=== PATIENT | female | born 1950 | race Caucasian/White ===

== ENCOUNTER → 2019-10-05 09:30 | Outpatient (BNVA) | payer MEDICARE, MEDICAID, SELFPAY | PROVIDERS: Family Provider Nurse Practitioner Family; PCP Nurse Practitioner Family; Visit Provider Nurse Practitioner | DX: G89.29 Other chronic pain (principal); M51.17 Intervertebral disc disorders with radiculopathy, lumbosacral region; M53.3 Sacrococcygeal disorders, not elsewhere classified; M54.2 Cervicalgia; M17.0 Bilateral primary osteoarthritis of knee; M06.9 Rheumatoid arthritis, unspecified; M25.511 Pain in right shoulder; M79.7 Fibromyalgia; Z79.891 Long term (current) use of opiate analgesic | CPT/HCPCS: 99214 ==

== ENCOUNTER → 2019-10-26 07:40 | Outpatient (BNVA) | payer MEDICARE, MEDICAID, SELFPAY | PROVIDERS: Family Provider Nurse Practitioner Family; PCP Nurse Practitioner Family; Visit Provider Obstetrics & Gynecology | DX: D07.1 Carcinoma in situ of vulva (principal) | CPT/HCPCS: 88305 ==

== ENCOUNTER 2019-11-02 10:46 | Outpatient (CLI) | payer MEDICARE, MEDICAID, SELFPAY ==
[2019-11-02 11:00] VITALS: BP 139/69; PULSE 51; RESP 16; TEMP 36.8; O2SAT 98
== END 2019-11-02 10:47 | disposition home or self-care (01) ==
LOC: RHEOACUTE 10:48
PROVIDERS: Family Provider Nurse Practitioner Family; PCP Nurse Practitioner Family; Visit Provider Internal Medicine Rheumatology
DX: M05.79 Rheumatoid arthritis with rheumatoid factor of multiple sites without organ or systems involvement (principal); Z79.899 Other long term (current) drug therapy; E78.5 Hyperlipidemia, unspecified; I10 Essential (primary) hypertension; D07.1 Carcinoma in situ of vulva
CPT/HCPCS: 36415; 82565; 84460; 85025; 86140; 96365; J1602

== ENCOUNTER → 2019-11-02 11:26 | Outpatient (BNVA) | payer MEDICARE, MEDICAID, SELFPAY | PROVIDERS: Family Provider Nurse Practitioner Family; PCP Nurse Practitioner Family | DX: M05.79 Rheumatoid arthritis with rheumatoid factor of multiple sites without organ or systems involvement (principal); E78.5 Hyperlipidemia, unspecified; I10 Essential (primary) hypertension; D07.1 Carcinoma in situ of vulva; Z79.899 Other long term (current) drug therapy | CPT/HCPCS: 85025 ==

== ENCOUNTER → 2019-11-22 13:43 | Outpatient (BNVA) | payer MEDICARE, MEDICAID, SELFPAY | PROVIDERS: Family Provider Nurse Practitioner Family; PCP Nurse Practitioner Family; Visit Provider Specialist | DX: M25.562 Pain in left knee (principal); G89.29 Other chronic pain; S82.292A Other fracture of shaft of left tibia, initial encounter for closed fracture; X58.XXXA Exposure to other specified factors, initial encounter | CPT/HCPCS: 73560; 73565 ==

== ENCOUNTER → 2019-11-30 09:33 | Outpatient (BNVA) | payer MEDICARE, MEDICAID, SELFPAY | PROVIDERS: Family Provider Nurse Practitioner Family; PCP Nurse Practitioner Family; Visit Provider Anesthesiology | DX: G89.29 Other chronic pain (principal); M51.17 Intervertebral disc disorders with radiculopathy, lumbosacral region; M53.3 Sacrococcygeal disorders, not elsewhere classified; M54.2 Cervicalgia; Z79.891 Long term (current) use of opiate analgesic | CPT/HCPCS: 99214 ==

== ENCOUNTER → 2019-12-27 15:53 | Outpatient (BNVA) | payer MEDICARE, MEDICAID, SELFPAY | PROVIDERS: Family Provider Nurse Practitioner Family; PCP Nurse Practitioner Family; Visit Provider Nurse Practitioner Family | DX: N39.0 Urinary tract infection, site not specified (principal); R11.0 Nausea | CPT/HCPCS: 80053; 81000; 87077; 87086; 87186 ==

== ENCOUNTER 2019-12-28 14:15 | Inpatient (IN) | payer MEDICARE, MEDICAID, SELFPAY ==
[2019-12-28 14:16] VITALS: BP 134/107; PULSE 109; RESP 20; TEMP 38.5; O2SAT 94; BMI 32.3
--- NOTE | 2019-12-28 14:27 | ED_ITS ---
HPI - General Adult General: Chief complaint: General Medical Stated complaint: N/V, FEVER, CP Time Seen by Provider: 12/28/19 14:26 History of Present Illness: HPI narrative: Pt tells me she is here for a uti. She has had burning with urination, frequency, fever, vomiting. She told triage that she had a fever chest pain and was coughing which they witnessed. She told someone that she had been started on abx yesterday for uti but she got worse today. bcak pain. Onset (ago): day(s) (3) Location: abdomen (suprapubic) Radiation: back Severity: severe Severity scale (1-10): 6 Quality: burning and stabbing Pain Consistency: constant Relieving factors: none Exacerbating factors: none Associated symptoms: Reports chest pain, cough, fevers/chills, malaise, nausea and vomiting; Deny dyspnea, headache(s) or rash Review of Systems General: Reports: 10 or more systems reviewed and unremarkable except in HPI and below Const: Reports: fever, chills, body aches, change in appetite, fatigue and malaise ENMT: Denies: throat pain Card: Reports: chest pain Resp: Denies: shortness of breath or productive cough GI: Reports: abdominal pain, nausea and vomiting; Denies: diarrhea : Reports: flank pain, difficulty urinating, painful urination, urinary frequency, urinary urgency and urinary hesitancy Musc: Reports: back pain and joint pain; Denies: extremity swelling Skin/Breast: Denies: rash Neuro: Denies: headache, numbness in extremities or weakness in extremities PFSH ED PFSH: Medical History Bilateral primary osteoarthritis of knee CAD (coronary artery disease), [place] coronary artery Chronic right shoulder pain Dyslipidemia Encounter for long-term opiate analgesic use Fibromyalgia High risk medication use Hypertension Immunization counseling Lichen sclerosus (~2013) Localized osteoarthritis of right knee Long-term use of high-risk medication Neck pain PVC (premature ventricular contraction) Rheumatoid arthritis, unspecified Risk for falls Sciatic radiculitis Seropositive rheumatoid arthritis SI (sacroiliac) joint dysfunction Vulvar intraepithelial neoplasia III Surgical History H/O local excision of skin lesion (03/09/19) Dx: Vulvar lesions. Performed by Dr. Erazo at [facility] [place]. 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 Hadley. S/P hysterectomy (~1975) With BSO S/P knee surgery (~2012) Right knee. Dr. Royal Status post arterial stent (09/05/19) only 1 stent at [facility] [place] Family History Brother Hyperlipidemia Grandmother Breast cancer Maternal Sister Diabetes Family/Other CAD (coronary artery disease) Father's side of the family Social History Smoking and tobacco status: never smoked Second hand smoke exposure: No Alcohol intake: never History of recent travel: No Additional social history: well- balanced Physical Exam Const: COMMON NORMALS: no apparent distress and oriented x3 GENERAL APPEARANCE: cooperative; not in distress HENMT: COMMON NORMALS: normocephalic HEAD & SCALP: normal to inspection and normocephalic MOUTH: oral and palatal mucosa normal and lip normal THROAT: posterior oropharynx normal and tonsils normal Neck/C-Spine: COMMON NORMALS: full ROM, no lymphadenopathy, supple and no meningeal signs GENERAL: Yes normal visual inspection and Yes trachea midline Chest: COMMONS NORMALS: inspection of chest normal Resp: COMMON NORMALS: normal respiratory effort and clear to auscultation bilaterally EFFORT & INSPECTION: Yes able to speak in complete sentences and No respiratory distress AUSCULTATION: clear to auscultation bilaterally, no rales, no rhonchi and no wheezes Cardio: COMMON NORMALS: regular rate, regular rhythm, S1 normal heart sound, S2 normal heart sound and no murmurs RATE: regular rate RHYTHM: regular rhythm HEART SOUNDS: S1 normal and S2 normal PERIPHERAL PULSES: radial pulses present and dorsalis pedis pulses present GI: COMMON NORMALS: normal to inspection, nondistended, normoactive bowel sounds, soft to palpation and non-tender INSPECTION: Yes normal to inspection AUSCULTATION: Yes normoactive bowel sounds PALPATION: Yes soft, No tender, No guarding and No rigid RECTAL EXAM: deferred : COMMON NORMALS: No no CVA tenderness BLADDER/KIDNEY EXAM: No no CVA tenderness and Yes CVA tenderness Back/Pelvis: COMMON NORMALS: negative for no CVA tenderness GENERAL BACK: Yes CVA tenderness CVA tenderness: bilateral Extremity: COMMON NORMALS: normal to inspection, full ROM, normal capillary refill, no calf tenderness and no pedal edema Neuro: COMMON NORMALS: oriented x3, CN's II-XII intact bilaterally, moves all extremities and no focal motor deficits MENINGEAL SIGNS: Yes no meningeal signs Skin: COMMON NORMALS: no rashes or lesions noted GENERAL SKIN EXAM: no rashes or lesions noted Course Vital Signs: Vital signs: Vital Signs Temperature 101.3 F H 12/28/19 14:16 Pulse Rate 92 12/28/19 15:51 Respiratory Rate 25 H 12/28/19 15:51 Blood Pressure 137/59 12/28/19 15:51 Pulse Oximetry 92 12/28/19 15:51 MDM - General Adult MDM Narrative: Medical decision making narrative: Pt has acute sepsis with acute pytelnephritis and acute kidney injury due to her intractable vomiting, she is a cad pt and cannot hold down her meds, she is febrile and has a wbc of 16 and will require iv abx as she has been on oral abx and is failing outpt therapy. She has had cough and states she has been exposed to covid + pts. Dr Mcpherson states he will admit the pt Lab Data: Attestation: I reviewed the patient's lab results. Labs: Lab Results 12/28/19 12/28/19 12/28/19 Range/Units 13:15 13:15 13:15 WBC 16.8 H (4.0-10.0) 10^3/ uL RBC 4.34 (4.1-5.3) 10^6/u L Hgb 12.1 (11.5-15.3) g/dL Hct 38.2 (37.0-47.0) % MCV 88.0 (81-99) fL MCH 27.9 L (28.0-34.0) pg MCHC 31.7 (30.0-36.0) g/dL RDW 12.9 (12.1-15.1) % Plt Count 280 (130-400) 10^3/c mm MPV 11.4 H (7.4-10.4) fL Neut % (Auto) 80.4 % Lymph % (Auto) 8.9 % Cowley % (Auto) 10.0 % Eos % (Auto) 0.0 % Baso % (Auto) 0.2 % Neut # (Auto) 13.5 H (1.8-7.7) 10^3/u L Lymph # (Auto) 1.5 (0.8-4.8) 10^3/u L [place]ley # (Auto) 1.7 H (0.2-0.9) 10^3/u L Eos # (Auto) 0.0 (0.0-0.8) 10^3/u L Baso # (Auto) 0.0 (0.0-0.1) 10^3/u L Nucleated RBC % (a uto) 0 % Nucleated RBCs # 0.0 /100WBC Sodium 142 (136-145) mmol/L Potassium 3.9 (3.5-5.1) mmol/L Chloride 103 (98-107) mmol/L Carbon Dioxide 21 L (22-29) mmol/L Anion Gap 21.9 H (5-19) BUN 30 H (8-23) mg/dL Creatinine 1.7 H (0.5-0.9) mg/dL GFR Calculation 29.9 L (90-130) mL/min Glucose 139 H (65-115) mg/dL Calculated Osmolal ity 293 (285-295) mOsm/k g Calcium 9.6 (8.5-10.5) mg/dL Total Bilirubin 0.8 (0.15-1.2) mg/dL AST 25 (0-32) U/L ALT 13 (0-33) U/L Alkaline Phosphata se 88 (35-105) IU/L Troponin T Baselin e 16 H (0-10) ng/mL Troponin T 120 Min [place] (0-10) ng/mL Delta Troponin T (0-10) ABS# Total Protein 8.5 (6.6-8.7) g/dL Albumin 4.3 (3.5-5.2) g/dL Globulin 4.2 (1.3-4.6) g/dL Lipase 9 L (13-60) U/L Urine Color (Yellow) Urine Appearance (CLEAR) Urine pH (5-7) Ur Specific Gravit y (1.005-1.030) Urine Protein (Negative) Urine Glucose (UA) (Normal) Urine Ketones (Negative) Urine Blood (Negative) Urine Nitrate (Negative) Urine Bilirubin (NEGATIVE) Urine Urobilinogen (Negative) mg/dL Ur Leukocyte [place] (Negative) Urine RBC (0-2) /hpf Urine WBC (0-5) /hpf Ur Squamous Epith Cells (0-5) Ur Transition Epit h Cell /hpf Urine Bacteria (NONE) Urine Mucus Ur Oval Fat Bodies Influenza Type A A g (Negative) Influenza Type B A g (Negative) 12/28/19 12/28/19 12/28/19 Range/Units 15:17 15:20 15:26 WBC (4.0-10.0) 10^3/ uL RBC (4.1-5.3) 10^6/u L Hgb (11.5-15.3) g/dL Hct (37.0-47.0) % MCV (81-99) fL MCH (28.0-34.0) pg MCHC (30.0-36.0) g/dL RDW (12.1-15.1) % Plt Count (130-400) 10^3/c mm MPV (7.4-10.4) fL Neut % (Auto) % Lymph % (Auto) % [place] % (Auto) % Eos % (Auto) % Baso % (Auto) % Neut # (Auto) (1.8-7.7) 10^3/u L Lymph # (Auto) (0.8-4.8) 10^3/u L [place] # (Auto) (0.2-0.9) 10^3/u L Eos # (Auto) (0.0-0.8) 10^3/u L Baso # (Auto) (0.0-0.1) 10^3/u L Nucleated RBC % (a uto) % Nucleated RBCs # /100WBC Sodium (136-145) mmol/L Potassium (3.5-5.1) mmol/L Chloride (98-107) mmol/L Carbon Dioxide (22-29) mmol/L Anion Gap (5-19) BUN (8-23) mg/dL Creatinine (0.5-0.9) mg/dL GFR Calculation (90-130) mL/min Glucose (65-115) mg/dL Calculated Osmolal ity (285-295) mOsm/k g Calcium (8.5-10.5) mg/dL Total Bilirubin (0.15-1.2) mg/dL AST (0-32) U/L ALT (0-33) U/L Alkaline Phosphata se (35-105) IU/L Troponin T Baselin e (0-10) ng/mL Troponin T 120 Min [place] 19.44 H (0-10) ng/mL Delta Troponin T 3.44 (0-10) ABS# Total Protein (6.6-8.7) g/dL Albumin (3.5-5.2) g/dL Globulin (1.3-4.6) g/dL Lipase (13-60) U/L Urine Color Emma (Yellow) Urine Appearance Sl cloudy A (CLEAR) Urine pH 5 (5-7) Ur Specific Gravit y 1.020 (1.005-1.030) Urine Protein 3+ H (Negative) Urine Glucose (UA) Norm (Normal) Urine Ketones 1+ H (Negative) Urine Blood 3+ H (Negative) Urine Nitrate Positive H (Negative) Urine Bilirubin 1+ H (NEGATIVE) Urine Urobilinogen 1 H (Negative) mg/dL Ur Leukocyte [place] 2+ H (Negative) Urine RBC 15-25 H (0-2) /hpf Urine WBC 25-40 H (0-5) /hpf Ur Squamous Epith Cells 5-10 H (0-5) Ur Transition Epit h Cell Rare /hpf Urine Bacteria 3+ H (NONE) Urine Mucus 1+ Ur Oval Fat Bodies 1+ Influenza Type A A g Negative (Negative) Influenza Type B A g Negative (Negative) Discharge Plan Discharge Prescriptions: No Action lidocaine-epinephrine 2 %-1:100,000 solution 1 ml SUBCUT ONCE Qty: 1 RF: 0 metoprolol tartrate 25 mg tablet 25 mg PO BID RF: 0 pantoprazole 40 mg tablet,delayed release (DR/EC) 40 mg PO ONCE RF: 0 clopidogrel [Plavix] 75 mg tablet 75 mg PO ONCE RF: 0 aspirin 81 mg tablet,delayed release (DR/EC) 81 mg PO ONCE RF: 0 nitroglycerin 0.4 mg tablet, sublingual 0.4 mg SUBLINGUAL .once up to 3 pills RF: 0 cyanocobalamin (vitamin B-12) [Vitamin B-12] 500 mcg tablet 500 mcg PO ONCE RF: 0 hydrocodone-acetaminophen 10-325 mg tablet 1 tab PO .five times daily PRN (Reason: pain) 30 Days Qty: 150 RF: 0 hydrocodone-acetaminophen 10-325 mg tablet 1 tab PO .5 times daily PRN (Reason: pain) 30 Days Qty: 150 RF: 0 tizanidine 4 mg tablet 4 mg PO .at bedtime PRN (Reason: muscle spasticity) 30 Days Qty: 30 RF: 0 pregabalin [Lyrica] 50 mg capsule 50 mg PO TID 30 Days Qty: 90 RF: 1 nitrofurantoin monohyd/m-cryst [Macrobid] 100 mg capsule 100 mg PO Q12H 7 Days Qty: 14 RF: 0 phenazopyridine [Pyridium] 200 mg tablet 200 mg PO TID Qty: 6 RF: 0 ondansetron HCl [Zofran] 4 mg tablet 4 mg PO Q8H PRN (Reason: nausea and vomiting) 3 Days Qty: 10 RF: 0 atorvastatin 40 mg tablet 40 mg PO ONCE Qty: 90 RF: 3 spironolactone 25 mg tablet 12.5 mg PO DAILY Qty: 45 RF: 3 Coding Level of Care Code ED General Medical Practitioner for Chg Fwd Exam Comprehensive
--- NOTE | 2019-12-28 14:55 | ECG_ITS ---
Measurements Intervals [place] Rate: 107 P: -82 TN: 90 QRS: -57 QRSD: 116 T: 65 QT: 331 QTc: 443 JUNCTIONAL TACHYCARDIA PATTERN CONSISTENT WITH PULMONARY DISEASE INCOMPLETE RIGHT BUNDLE BRANCH BLOCK [90+ ms QRS DURATION, TERMINAL R IN V1/V2, 440+ ms S IN I/aVL/V4/V5/V6] LEFT ANTERIOR FASCICULAR BLOCK [QRS AXIS <= -45, QR IN I, RS IN II] LEFT VENTRICULAR HYPERTROPHY AND ST-T CHANGE [VOLTAGE CRITERIA PLUS ST/T ABN ABNORMALITY] POSSIBLE SEPTAL MYOCARDIAL INFARCTION , PROBABLY OLD [30 ms Q WAVE IN V1/V2] Compared to ECG 03/05/2019 11:02:08Junctional tachycardia now present Incomplete right bundle-branch block now presentLeft anterior fascicular block now presentST (T wave) deviation now present Myocardial infarct finding now present Sinus bradycardia no longer present Left-axis deviation no longer present Electronically Signed On 12-29-2019 18:00:06 CDT by Annamaria Brandon M.D. [email or web address] ion
[2019-12-28 15:13] LABS: Basophils % 0.2 %; Hematocrit 38.2 % (37.0-47.0); Hemoglobin 12.1 g/dL (11.5-15.3); Lymphocytes # 1.5 10^3/uL (0.8-4.8); Lymphocytes % 8.9 %; Mean Corpuscular HGB Conc 31.7 g/dL (30.0-36.0); Mean Corpuscular Hemoglobin 27.9 pg (28.0-34.0); Mean Platelet Volume 11.4 fL (7.4-10.4); Monocytes # 1.7 10^3/uL (0.2-0.9); Neutrophils # 13.5 10^3/uL (1.8-7.7); Neutrophils % 80.4 %; Nucleated Red Blood Cells % 0 %; Platelet Count 280 10^3/cmm (130-400); Red Blood Count 4.34 10^6/uL (4.1-5.3); Red Cell Distribution Width 12.9 % (12.1-15.1); White Blood Count 16.8 10^3/uL (4.0-10.0)
[2019-12-28] MEDS: ondansetron 2 mg/ML SDV 2 mL 4 MG IVP ×2 (15:30→20:28)
[2019-12-28] MEDS: sodium chloride 0.9% 500 ML IV (15:30)
[2019-12-28 15:45] LABS: Alanine Aminotransferase 13 U/L (0-33); Albumin Level 4.3 g/dL (3.5-5.2); Alkaline Phosphatase 88 IU/L (35-105); Anion Gap 21.9 (5-19); Aspartate Amino Transferase 25 U/L (0-32); Blood Urea Nitrogen 30 mg/dL (8-23); Calcium 9.6 mg/dL (8.5-10.5); Carbon Dioxide 21 mmol/L (22-29); Chloride 103 mmol/L (98-107); Globulin 4.2 g/dL (1.3-4.6); Glomerular Filtration Rate 29.9 mL/min (90-130); Glucose 139 mg/dL (65-115); Lipase 9 U/L (13-60); Osmolality Calculated 293 mOsm/kg (285-295); Potassium 3.9 mmol/L (3.5-5.1); Sodium 142 mmol/L (136-145); Total Bilirubin 0.8 mg/dL (0.15-1.2); Total Protein 8.5 g/dL (6.6-8.7)
[2019-12-28 15:46] LABS: Troponin(5th) Baseline 16 ng/mL (0-10)
[2019-12-28 15:51] VITALS: BP 137/59; PULSE 92; RESP 25; O2SAT 92
--- NOTE | 2019-12-28 16:13 | XR_ITS ---
WS: [id number] CHEST XRAY TECHNIQUE: Portable chest. CLINICAL INFORMATION: pneumonia COMPARISON: July 23, 2019 FINDINGS: Heart: Normal cardiac silhouette. Lungs: Chronic emphysematous changes. No acute pulmonary infiltrates. No focal pneumonia. Bones: Normal visualized bony structures. XR/XR chest 1V portable [id number] IMPRESSION: No acute chest findings
[2019-12-28 16:28] LABS: Urine Color Amber (Yellow)
[2019-12-28 16:29] LABS: Add Urine Microscopic? YES; Bilirubin Urine 1+ (NEGATIVE); Blood Urine 3+ (Negative); Glucose Urine UA Norm (Normal); Ketones Urine 1+ (Negative); Leukocyte Esterase Urine 2+ (Negative); Nitrate Urine Positive (Negative); Protein Urine 3+ (Negative); Urobilinogen Urine 1 mg/dL (Negative); pH Urine 5 (5-7)
[2019-12-28 16:34] LABS: Influenza A by IFA Negative (Negative); Influenza B by IFA Negative (Negative)
[2019-12-28 16:36] LABS: RBC Urine 15-25 /hpf (0-2)
[2019-12-28 16:37] LABS: Add Urine Culture? Yes; Bacteria Urine 3+; Mucus Urine 1+; Oval Fat Bodies Urine 1+; Transitional Epi Cells Urine RARE /hpf; WBC Urine 25-40 /hpf (0-5)
--- NOTE | 2019-12-28 16:55 | ECG_ITS ---
Measurements Intervals [place] Rate: 99 P: -8 NV: 129 QRS: -56 QRSD: 119 T: 63 QT: 351 QTc: 452 SINUS RHYTHM INCOMPLETE RIGHT BUNDLE BRANCH BLOCK [90+ ms QRS DURATION, TERMINAL R IN V1/V2, 40+ ms S IN I/aVL/V4/V5/V6] LEFT ANTERIOR FASCICULAR BLOCK [QRS AXIS <= -45, QR IN I, RS IN II] LEFT VENTRICULAR HYPERTROPHY AND ST-T CHANGE [VOLTAGE CRITERIA PLUS ST/T ABN ABNORMALITY] POSSIBLE SEPTAL MYOCARDIAL INFARCTION , OF INDETERMINATE AGE [30 ms Q WAVE IN V1 V1/V2]Compared to ECG 03/05/2019 11:02:08.Left anterior fascicular block now present ST (T wave) deviation now present.Myocardial infarct finding now present Sinus bradycardia no longer present.Intraventricular conduction delay no longer present.T-wave abnormality no longer present Possible ischemia no longer present Electronically Signed On 12-29-2019 18:08:50 CDT by Annamaria Brandon M.D. [id number]
[2019-12-28 16:59] LABS: Troponin 5 2HR 19.44 ng/mL (0-10); Troponin 5 2HR Delta 3.44 ABS# (0-10)
[2019-12-28] MEDS: piperacillin-tazobactam 3.375 GM in sodium chloride 0.9% (plus) 50 ML IV (17:46)
[2019-12-28] MEDS: vancomycin 1,000 MG in sodium chloride 0.9% 250 ML 250 MG IV (18:20)
[2019-12-28 18:25] VITALS: BP 139/68; PULSE 92; RESP 18; TEMP 36.7; O2SAT 97
--- NOTE | 2019-12-28 19:23 | PM.HP ---
Providers/Chief Complaint Admitting Physician: Malachi Mcpherson Primary Care Provider: Lien Rangel NP Chief Complaint: N/V, FEVER, CP History of Present Illness Gracy Montemayor is a 69 year old female who has history of seropositive rheumatoid arthritis diagnosed in 1994(did not tolerate methotrexate and Remicade due to hair loss currently on Simponi since 2018), back pain due to sciatica, complicated hospitalization in December 2018 at [facility] when she developed V. tach, cardiac arrest, C. difficile, pyelonephritis, currently seeing Dr. Goldberg who has put her on metoprolol for multiple PVCs and SVT, as per Holter monitoring reading, LAD 75 to 80% stenosis status post stent 08/10, EF 65%, presented today with chief complaint of dysuria. Patient is stating that her symptoms started 2 days ago when she started having burning on micturition, frequency, hesitancy, she also noticed blood in her urine. Her PCP started her on nitrofurantoin, today's her day 10/29, she spiked fever 101 at home, she did not notice any chest pain, shortness of breath, or vomiting. She experienced dry heaves, nausea and chronic back pain, she is stating that her back pain is chronic she has not noticed a change in the intensity of the pain however on voiding she notices burning and pain around her groin area. She has not traveled outside [place], no one has visited her as well. She is not complaining of any respiratory distress or productive cough. Diagnostics in ER revealed sepsis, febrile, leukocytosis, she was given vancomycin, Zosyn,covid testing ordered, she got appropriate septic bolus, When I examined her she was asymptomatic however febrile, able to give me all the details, complaining of burning on micturition, no diarrhea or vomiting. Review of Systems Const: Reports: fever, chills, body aches and fatigue Eyes: Reports: dry eyes; Denies: change in vision ENMT: Denies: throat pain Card: Denies: chest pain Resp: Denies: shortness of breath or non-productive cough GI: Reports: abdominal pain and nausea; Denies: vomiting or diarrhea : Reports: flank pain, difficulty urinating, painful urination, urinary frequency and urinary urgency Musc: Reports: joint pain and limited range of motion Skin/Breast: Denies: rash Neuro: Denies: headache Psych: Denies: anxiety Endo: Denies: excessive urination Fausto/Lymph: Denies: easy bruising All/Imm: Denies: hives Medications/Allergies Home Medications Medication Instructions Recorded Confirmed Last Taken Type atorvastatin 40 mg PO DAILY 12/28/19 12/28/19 12/27/19 History lifitegrast [Xiidra] See Rx Instructions .ROUTE .COMPLEX 12/28/19 12/28/19 12/27/19 History Allergies Allergy/AdvReac Type Severity Reaction Status Date / Time adhesive tape Allergy RASH Verified 12/27/19 15:48 sulfacetamide Allergy RASH Verified 12/27/19 15:48 gabapentin AdvReac DIZZY Verified 12/27/19 15:48 PFSH Acute PFSH: Medical History (Updated 12/28/19 @ 20:24 by Nadia Ortega MD) Bilateral primary osteoarthritis of knee Bowel perforation CAD (coronary artery disease), [place] coronary artery Chronic constipation Chronic right shoulder pain Dyslipidemia Encounter for long-term opiate analgesic use Fibromyalgia High risk medication use Hypertension Immunization counseling Lichen sclerosus (~2013) Localized osteoarthritis of right knee Long-term use of high-risk medication Neck pain PVC (premature ventricular contraction) Rheumatoid arthritis, unspecified Risk for falls Sciatic radiculitis Seropositive rheumatoid arthritis SI (sacroiliac) joint dysfunction Vulvar intraepithelial neoplasia III Surgical History (Updated 12/28/19 @ 19:27 by Nadia Ortega MD) H/O local excision of skin lesion (03/09/19) Dx: Vulvar lesions. Performed by Dr. Erazo at [facility] [place]. 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 Hadley. S/P hysterectomy (~1975) With BSO S/P knee surgery (~2012) Right knee. Dr. Royal Status post arterial stent (09/05/19) only 1 stent at [facility] [place] Family History Brother Hyperlipidemia Grandmother Breast cancer Maternal Sister Diabetes Family/Other CAD (coronary artery disease) Father's side of the family Social History Smoking and tobacco status: never smoked Second hand smoke exposure: No Alcohol intake: never History of recent travel: No Additional social history: well- balanced Vitals/I&O/Wt Last Vital Signs Temp 98.1 F 12/28/19 18:25 Pulse 92 12/28/19 18:25 Resp 18 12/28/19 18:25 BP 139/68 12/28/19 18:25 Pulse Ox 97 12/28/19 18:25 12/28/19 12/28/19 12/28/19 06:59 14:59 22:59 Intake Total 550 / 550 Balance 550 / 550 Weight last 48 hrs Weight 90.718 kg Physical Exam Narrative: EXAM NARRATIVE: This is a pleasant elderly female Currently saturating well on room air, Febrile Septic No active respiratory distress S1, S2, sinus tachycardia heart rate above 90, sinus rhythm Abdomen soft, mild tenderness on deep palpation on hypogastric region, CVA tenderness positive bilaterally, back pain radiating towards her knees Lungs are clear to auscultation Neurologically nonfocal exam EOMI, PERRLA, dry eyes Patient seems dehydrated, Appropriate mood and Data : 12/28/19 13:15 12/28/19 13:15 Micro: Microbiology 12/28/19 15:30 Blood Culture - Preliminary Blood SPECIMEN COLLECTED 12/28/19 15:20 Blood Culture - Preliminary Blood SPECIMEN COLLECTED A&P Assessment and plan (1) Sepsis: Status: Acute (2) UTI (urinary tract infection): Status: Acute (3) Seropositive rheumatoid arthritis: Status: Acute (4) Sciatic radiculitis: Status: Chronic (5) PVC (premature ventricular contraction): Status: Acute Additional A&P Information Sepsis secondary to UTI Concern for pyelonephritis with CVA tenderness Continue Zosyn, IV fluid resuscitation for 10 hours Blood and urine culture sent, I have ordered CT abdomen for tomorrow once covid results come back covid testing ordered by ER physician however no risk factors without active clinical signs She has previous history of C. difficile when she was treated for pyelonephritis, no active diarrhea Back pain due to sciatica I will reduce her gabapentin dose because of STEVE She has history of sacroiliitis Seropositive rheumatoid arthritis currently on Simponi every 8 weeks It was started in December 2017 after she failed Remicade and methotrexate due to hair fall No active joint swelling or inflammation noted PVCs, history of V. tach and cardiac arrest in the past Dr. Goldberg has started her on metoprolol, Holter monitoring has revealed PVCs, nonsustained V. tach and PACs Currently EKG showing bifascicular block heart rate about 90 but not above 100 Hemodynamically stable Acute kidney injury most likely secondary to UTI versus pyelonephritis Continue fluids and antibiotics at this point DVT prophylaxis: Heparin Full code Cardiac diet Attestations Medical Necessity Statement*: Anticipating stay in the hospital cross more than 2 midnights because of sepsis secondary to possible pyelonephritis,covid test ordered Time Spent in Patient Care: 40 Coding Level of Care Code Acute Vice President Network Development for g Fwd Diagnoses Sepsis A41.9 UTI (urinary tract infection) N39.0 Seropositive rheumatoid arthritis M05.9 Sciatic radiculitis M51.17 PVC (premature ventricular contraction) I49.3
[2019-12-28 19:42] VITALS: BP 162/74; PULSE 88; RESP 18; TEMP 38.1; O2SAT 99
[2019-12-28 19:57] LABS: Troponin 5 6HR 18.29 ng/mL (0-10); Troponin 5 6HR Delta 2.29 ng/L (0-12)
[2019-12-28] MEDS: tizanidine 4 mg Tablet PO (20:00)
[2019-12-28] MEDS: phenazopyridine 100 mg Tablet 200 MG PO (20:31)
[2019-12-28] MEDS: heparin 5,000 unit/mL INJ 1 mL 5000 UNIT SUBCUT (20:31)
[2019-12-28] MEDS: pregabalin 25 mg Capsule PO (20:32)
--- NOTE | 2019-12-28 20:55 | ECG_ITS ---
Measurements Intervals [place] Rate: 73 P: -81 TN: 100 QRS: -55 QRSD: 113 T: -26 QT: 377 QTc: 417 JUNCTIONAL RHYTHM LEFT ANTERIOR FASCICULAR BLOCK [QRS AXIS <= -45, QR IN I, RS IN II] MODERATE VOLTAGE CRITERIA FOR LVH, CONSIDER NORMAL VARIANT [MEETS CRITERIA IN ONE OF: R(aVL), S(V1), R(V5), R(V5/V6)+S(V1)] POSSIBLE SEPTAL MYOCARDIAL INFARCTION [30 ms Q WAVE IN V1/V2], PROBABLY OLD Compared to ECG 03/05/2019 11:02:08,Junctional rhythm now present Left anterior fascicular block now present.Myocardial infarct finding now present.Sinus bradycardia no longer present Left-axis deviation no longer present.Intraventricular conduction delay no longer present.T-wave abnormality no longer present Possible ischemia no longer present Electronically Signed On 12-29-2019 18:10:37 CDT by Annamaria Brandon M.D. [email or web address]
[2019-12-29] VITALS (11 sets, daily range): BP systolic 96–147; BP diastolic 57–81; PULSE 57–86; RESP 15–24; TEMP 37.2–38.8; O2SAT 90–97
[2019-12-29] MEDS: piperacillin-tazobactam 3.375 GM in sodium chloride 0.9% (plus) 50 ML IV ×4 (00:26→23:59)
[2019-12-29] MEDS: sodium chloride 0.9% 1,000 ML 50 ML IV ×2 (00:27→16:43)
[2019-12-29] MEDS: acetaminophen 325 mg Tablet 650 MG PO ×3 (01:45→23:59)
[2019-12-29 04:52] LABS: Basophils % 0.1 %; Hematocrit 31.6 % (37.0-47.0); Hemoglobin 9.9 g/dL (11.5-15.3); Lymphocytes # 1.5 10^3/uL (0.8-4.8); Lymphocytes % 10.4 %; Mean Corpuscular HGB Conc 31.3 g/dL (30.0-36.0); Mean Corpuscular Hemoglobin 27.7 pg (28.0-34.0); Mean Corpuscular Volume 88.5 fL (81-99); Mean Platelet Volume 11.3 fL (7.4-10.4); Monocytes # 1.6 10^3/uL (0.2-0.9); Monocytes % 11.1 %; Neutrophils # 10.9 10^3/uL (1.8-7.7); Neutrophils % 77.5 %; Nucleated Red Blood Cells % 0 %; Platelet Count 236 10^3/cmm (130-400); Red Blood Count 3.57 10^6/uL (4.1-5.3); Red Cell Distribution Width 12.9 % (12.1-15.1)
[2019-12-29 04:56] LABS: Anion Gap 19.5 (5-19); Blood Urea Nitrogen 33 mg/dL (8-23); Carbon Dioxide 19 mmol/L (22-29); Chloride 104 mmol/L (98-107); Glomerular Filtration Rate 21.1 mL/min (90-130); Glucose 200 mg/dL (65-115); Osmolality Calculated 291 mOsm/kg (285-295); Potassium 3.5 mmol/L (3.5-5.1); Sodium 139 mmol/L (136-145)
[2019-12-29 04:57] LABS: Lactic Acid level (Lactate) 1.5 mmol/L (0.5-2.2)
[2019-12-29] MEDS: heparin 5,000 unit/mL INJ 1 mL 5000 UNIT SUBCUT ×3 (05:24→19:57)
[2019-12-29] MEDS: HYDROmorphone 1 mg/mL INJ 1 mL IVP ×3 (05:35→21:26)
[2019-12-29] MEDS: phenazopyridine 100 mg Tablet 200 MG PO ×3 (09:20→19:57)
[2019-12-29] MEDS: pregabalin 25 mg Capsule PO (09:20)
[2019-12-29] MEDS: pantoprazole DR 40 mg Tablet PO (09:21)
[2019-12-29] MEDS: atorvastatin 40 mg Tablet PO (09:21)
[2019-12-29] MEDS: aspirin 81 mg EC Tablet PO (09:21)
[2019-12-29] MEDS: clopidogrel 75 mg Tablet PO (09:21)
--- NOTE | 2019-12-29 09:45 | P.PN_ITS ---
Subjective Subjective: Interval history: She is feeling a little bit better today. Occasional intermittent cough. Still clammy, although fevers have resolved. Vitals/I&O/Wt Last Vital Signs Temp 99.7 F H 12/29/19 08:00 Pulse 72 12/29/19 08:00 Resp 17 12/29/19 08:00 BP 122/75 12/29/19 08:00 Pulse Ox 93 12/29/19 08:00 12/28/19 12/29/19 12/29/19 22:59 06:59 14:59 Intake Total 790 / 790 290 / 1080 Balance 790 / 790 290 / 1080 Weight last 48 hrs Weight 90.718 kg Physical Exam Const: COMMON NORMALS: no apparent distress and oriented x3 NUTRITIONAL APPEARANCE: obese OTHER: Clammy skin. HENMT: COMMON NORMALS: oropharynx normal Neck/C-Spine: COMMON NORMALS: no JVD Resp: COMMON NORMALS: normal respiratory effort and clear to auscultation bilaterally AUSCULTATION: clear to auscultation bilaterally Cardio: COMMON NORMALS: no JVD, regular rhythm, S1 normal heart sound, S2 normal heart sound and no murmurs RHYTHM: regular rhythm HEART SOUNDS: S1 normal and S2 normal GI: COMMON NORMALS: normal to inspection, nondistended, normoactive bowel sounds, soft to palpation and non-tender PALPATION: Yes soft Extremity: COMMON NORMALS: no joint enlargement and no pedal edema Neuro: COMMON NORMALS: oriented x3 and moves all extremities Skin: COMMON NORMALS: no rashes or lesions noted GENERAL SKIN EXAM: no rashes or lesions noted Data : 12/29/19 04:10 12/29/19 04:10 Micro: Microbiology 12/28/19 15:17 Urine Culture - Preliminary Urine,Clean Catch 12/28/19 15:30 Blood Culture - Preliminary Blood Gram Negative Rods 12/28/19 15:20 Blood Culture - Preliminary Blood Gram Negative Rods A&P Assessment and plan (1) Sepsis: Improving. Fever, tachycardia improved. Leukocytosis down to 14 today. With fever on presentation, also reporting some occasional cough, and so COVID- 19 testing has been requested. Status: Acute (2) UTI (urinary tract infection): Complicated urinary tract infection with sepsis, possible pyelonephritis. At this time continue Zosyn. Follow-up urine culture. At this time she is improving, however, if there is lack of further improvement or worsening, may need additional imaging. Status: Acute (3) Seropositive rheumatoid arthritis: With sacroiliitis. Reported on Simponi currently every 8 weeks. Status: Acute (4) Sciatic radiculitis: Worsening kidney injury, will decrease Lyrica dose further to 25 mg once a day. These are capsules, so we are unable to break them down further. Status: Chronic (5) PVC (premature ventricular contraction): PVCs, history of V. tach and cardiac arrest in the past Dr. Goldberg has started her on metoprolol, Holter monitoring has revealed PVCs, nonsustained V. tach and PACs Currently EKG showing bifascicular block heart rate about 90 but not above 100 Hemodynamically stable. Maintain cardiac monitoring. Status: Acute (6) Acute kidney injury: Request urine studies. Status: Acute Additional A&P Information Past history of C. difficile with antibiotic treatment. Attestations Medical Necessity Statement*: Continue admission for assessment and management of sepsis, complicated urinary tract infection, acute kidney injury, assessment for COVID-19. Coding Level of Care Code Acute Director Security Risk Management for [facility] Fwd Diagnoses Sepsis A41.9 UTI (urinary tract infection) N39.0 Seropositive rheumatoid arthritis M05.9 Sciatic radiculitis M51.17 PVC (premature ventricular contraction) I49.3 Acute kidney injury N17.9
[2019-12-29 10:48] LABS: Urine Creatinine 168 mg/dL (28-217)
[2019-12-29 11:00] LABS: Urea Nitrogen,Urine Random 556 mg/dL
[2019-12-29] MEDS: tizanidine 4 mg Tablet PO (21:26)
[2019-12-30] VITALS (10 sets, daily range): BP systolic 109–151; BP diastolic 62–77; PULSE 62–80; RESP 12–20; TEMP 36.8–37.7; O2SAT 93–96
--- NOTE | 2019-12-30 02:09 | ECG_ITS ---
Measurements Intervals [place] Rate: 61 P: 8 HI: 150 QRS: -48 QRSD: 124 T: -9 QT: 418 QTc: 424 SINUS RHYTHM POSSIBLE RIGHT VENTRICULAR CONDUCTION DELAY [RSR (QR) IN V1/V2] LEFT ANTERIOR FASCICULAR BLOCK [QRS AXIS <= -45, QR IN I, RS IN II] MODERATE VOLTAGE CRITERIA FOR LVH, CONSIDER NORMAL VARIANT [MEETS CRITERIA IN ONE OF: R(aVL), S(V1), R(V5), R(V5/V6)+S(V1)] POSSIBLE SEPTAL MYOCARDIAL INFARCTION [30 ms Q WAVE IN V1/V2], PROBABLY OLD Compared to ECG 12/28/2019 22:36:32 Junctional rhythm no longer present Myocardial infarct finding still present Electronically Signed On 12-30-2019 15:30:48 CDT by Neftaly Munoz M.D. [email or web address]
[2019-12-30] MEDS: heparin 5,000 unit/mL INJ 1 mL 5000 UNIT SUBCUT ×3 (04:12→20:48)
[2019-12-30 04:55] LABS: Basophils % 0.2 %; Hematocrit 33.5 % (37.0-47.0); Hemoglobin 10.1 g/dL (11.5-15.3); Lymphocytes # 1.8 10^3/uL (0.8-4.8); Mean Corpuscular HGB Conc 30.1 g/dL (30.0-36.0); Mean Corpuscular Hemoglobin 27.4 pg (28.0-34.0); Mean Platelet Volume 11.7 fL (7.4-10.4); Monocytes # 1.6 10^3/uL (0.2-0.9); Monocytes % 12.7 %; Neutrophils # 9.3 10^3/uL (1.8-7.7); Neutrophils % 72.5 %; Nucleated Red Blood Cells % 0 %; Platelet Count 237 10^3/cmm (130-400); Red Blood Count 3.68 10^6/uL (4.1-5.3); Red Cell Distribution Width 12.9 % (12.1-15.1); White Blood Count 12.9 10^3/uL (4.0-10.0)
[2019-12-30 05:11] LABS: Alanine Aminotransferase 18 U/L (0-33); Albumin Level 2.7 g/dL (3.5-5.2); Alkaline Phosphatase 62 IU/L (35-105); Anion Gap 17.6 (5-19); Aspartate Amino Transferase 36 U/L (0-32); Blood Urea Nitrogen 36 mg/dL (8-23); Calcium 8.9 mg/dL (8.5-10.5); Carbon Dioxide 19 mmol/L (22-29); Chloride 107 mmol/L (98-107); Globulin 4.8 g/dL (1.3-4.6); Glomerular Filtration Rate 23.4 mL/min (90-130); Glucose 130 mg/dL (65-115); Osmolality Calculated 289 mOsm/kg (285-295); Potassium 3.6 mmol/L (3.5-5.1); Sodium 140 mmol/L (136-145); Total Bilirubin 0.6 mg/dL (0.15-1.2); Total Protein 7.5 g/dL (6.6-8.7)
[2019-12-30] MEDS: HYDROmorphone 1 mg/mL INJ 1 mL IVP ×4 (05:45→20:47)
[2019-12-30] MEDS: acetaminophen 325 mg Tablet 650 MG PO (05:46)
--- NOTE | 2019-12-30 07:35 | PC.NURSE ---
Radiology notified this nurse that the CT of her Abdomen will be completed after her COVIID-19 test comes back.
[2019-12-30] MEDS: ondansetron 2 mg/ML SDV 2 mL 4 MG IVP ×2 (09:29→20:55)
[2019-12-30] MEDS: clopidogrel 75 mg Tablet PO (09:30)
[2019-12-30] MEDS: atorvastatin 40 mg Tablet PO (09:30)
[2019-12-30] MEDS: phenazopyridine 100 mg Tablet 200 MG PO ×3 (09:30→20:48)
[2019-12-30] MEDS: aspirin 81 mg EC Tablet PO (09:30)
[2019-12-30] MEDS: sodium chloride 0.9% 1,000 ML 50 ML IV (09:30)
[2019-12-30] MEDS: pantoprazole DR 40 mg Tablet PO (09:30)
[2019-12-30] MEDS: piperacillin-tazobactam 3.375 GM in sodium chloride 0.9% (plus) 50 ML IV ×2 (09:32→18:01)
[2019-12-30] MEDS: pregabalin 25 mg Capsule PO (09:41)
--- NOTE | 2019-12-30 13:13 | PM.PN ---
Subjective Subjective: Interval history: Still feeling weak. No new developments. Vitals/I&O/Wt Last Vital Signs Temp 98.9 F 12/30/19 11:16 Pulse 68 12/30/19 11:16 Resp 20 H 12/30/19 11:16 BP 110/62 12/30/19 11:16 Pulse Ox 95 12/30/19 11:16 12/29/19 12/30/19 12/30/19 22:59 06:59 14:59 Intake Total 695.833 / 1393.333 290 / 9775.685 3229.167 / 1679.167 Output Total 450 / 810 Balance 245.833 / 583.333 290 / 131.032 1276.167 / 1679.167 Weight last 48 hrs Weight 90.718 kg Physical Exam Const: COMMON NORMALS: no apparent distress and oriented x3 NUTRITIONAL APPEARANCE: obese OTHER: Appears tired, but not in discomfort. HENMT: COMMON NORMALS: oropharynx normal Neck/C-Spine: COMMON NORMALS: no JVD Resp: COMMON NORMALS: normal respiratory effort and clear to auscultation bilaterally AUSCULTATION: clear to auscultation bilaterally Cardio: COMMON NORMALS: no JVD, regular rhythm, S1 normal heart sound, S2 normal heart sound and no murmurs RHYTHM: regular rhythm HEART SOUNDS: S1 normal and S2 normal GI: COMMON NORMALS: normal to inspection, nondistended, normoactive bowel sounds, soft to palpation and non-tender PALPATION: Yes soft Extremity: COMMON NORMALS: no joint enlargement and no pedal edema Neuro: COMMON NORMALS: oriented x3 and moves all extremities Skin: COMMON NORMALS: no rashes or lesions noted GENERAL SKIN EXAM: no rashes or lesions noted Data : 12/30/19 04:38 12/30/19 04:38 Micro: Microbiology 12/30/19 08:46 Blood Culture - Preliminary Blood SPECIMEN COLLECTED 12/30/19 08:42 Blood Culture - Preliminary Blood SPECIMEN COLLECTED 12/28/19 15:17 Urine Culture - Final Urine,Clean Catch 12/28/19 15:30 Blood Culture - Preliminary Blood Gram Negative Rods 12/28/19 15:20 Blood Culture - Preliminary Blood Gram Negative Rods A&P Assessment and plan (1) Sepsis: Improving. Fever, tachycardia improved. Leukocytosis trending down. Still feeling tired. With 4/4 gram-negative yoana growth and blood culture. Pansensitive E. coli in urine. Immunosuppressed state. Due to extensive growth and blood culture, acute kidney injury will assess renal CT, repeat culture. Continue IV antibiotic at this time. COVID-19 test returned negative. Status: Acute (2) UTI (urinary tract infection): Complicated urinary tract infection with sepsis, suspected pyelonephritis. As above. At this time continue Zosyn. Status: Acute (3) Seropositive rheumatoid arthritis: With sacroiliitis. Reported on Simponi currently every 8 weeks. Status: Acute (4) Sciatic radiculitis: Worsening kidney injury, will decrease Lyrica dose further to 25 mg once a day. These are capsules, so we are unable to break them down further. Status: Chronic (5) PVC (premature ventricular contraction): PVCs, history of V. tach and cardiac arrest in the past Dr. Goldberg has started her on metoprolol, Holter monitoring has revealed PVCs, nonsustained V. tach and PACs Currently EKG showing bifascicular block heart rate about 90 but not above 100 Hemodynamically stable. Maintain cardiac monitoring. Status: Acute (6) Acute kidney injury: Renal function stabilized. Assess renal CT as above. Urine studies suggestive of prerenal disease. Hold spironolactone. Monitor blood pressures. She is in positive balance. For now will avoid additional IV fluid. Status: Acute Additional A&P Information Past history of C. difficile with antibiotic treatment. Attestations Medical Necessity Statement*: Continue for assessment of mesh gated UTI, sepsis, suspected pyelonephritis, acute kidney injury. Coding Level of Care Code Acute Systems Technician for [facility] Fwd Diagnoses Sepsis A41.9 UTI (urinary tract infection) N39.0 Seropositive rheumatoid arthritis M05.9 Sciatic radiculitis M51.17 PVC (premature ventricular contraction) I49.3 Acute kidney injury N17.9
--- NOTE | 2019-12-30 14:59 | PC.SOCIAL ---
Patient received beneficiary letter from medicare for the care pathway model. Original signed and placed in chart. Patient received a copy.
--- NOTE | 2019-12-30 19:26 | PC.NURSE ---
Per the Charge nurse Elo TOBIAS infection control called and said that the COVIID-19 was negative for this patient.
[2019-12-30] MEDS: tizanidine 4 mg Tablet PO (20:48)
[2019-12-31] VITALS (11 sets, daily range): BP systolic 113–166; BP diastolic 66–76; PULSE 56–79; RESP 16–20; TEMP 36.4–37.3; O2SAT 93–96
[2019-12-31] MEDS: piperacillin-tazobactam 3.375 GM in sodium chloride 0.9% (plus) 50 ML IV ×2 (00:42→10:15)
[2019-12-31] MEDS: HYDROmorphone 1 mg/mL INJ 1 mL IVP ×5 (00:49→22:27)
[2019-12-31] MEDS: heparin 5,000 unit/mL INJ 1 mL 5000 UNIT SUBCUT ×3 (04:52→19:54)
[2019-12-31] MEDS: sodium chloride 0.9% 1,000 ML 50 ML IV ×2 (04:54→22:27)
[2019-12-31 05:35] LABS: Basophils % 0.2 %; Eosinophils # 0.1 10^3/uL (0.0-0.8); Eosinophils % 0.6 %; Hematocrit 29.5 % (37.0-47.0); Hemoglobin 9.3 g/dL (11.5-15.3); Lymphocytes # 1.5 10^3/uL (0.8-4.8); Lymphocytes % 14.2 %; Mean Corpuscular HGB Conc 31.5 g/dL (30.0-36.0); Mean Corpuscular Hemoglobin 27.8 pg (28.0-34.0); Mean Corpuscular Volume 88.3 fL (81-99); Monocytes # 1.3 10^3/uL (0.2-0.9); Monocytes % 11.8 %; Neutrophils # 7.8 10^3/uL (1.8-7.7); Neutrophils % 72.4 %; Nucleated Red Blood Cells % 0 %; Platelet Count 277 10^3/cmm (130-400); Red Blood Count 3.34 10^6/uL (4.1-5.3); Red Cell Distribution Width 13.2 % (12.1-15.1); White Blood Count 10.8 10^3/uL (4.0-10.0)
[2019-12-31 06:02] LABS: Alanine Aminotransferase 25 U/L (0-33); Alkaline Phosphatase 78 IU/L (35-105); Anion Gap 17.3 (5-19); Aspartate Amino Transferase 49 U/L (0-32); Blood Urea Nitrogen 29 mg/dL (8-23); Calcium 9.2 mg/dL (8.5-10.5); Carbon Dioxide 20 mmol/L (22-29); Chloride 106 mmol/L (98-107); Globulin 4.5 g/dL (1.3-4.6); Glomerular Filtration Rate 32.1 mL/min (90-130); Glucose 107 mg/dL (65-115); Osmolality Calculated 288 mOsm/kg (285-295); Potassium 3.3 mmol/L (3.5-5.1); Sodium 140 mmol/L (136-145); Total Bilirubin 0.4 mg/dL (0.15-1.2); Total Protein 7.5 g/dL (6.6-8.7)
--- NOTE | 2019-12-31 08:00 | CT_ITS ---
WS: [id number] CT ABDOMEN PELVIS TECHNIQUE: Noncontrast CT of the abdomen and pelvis with coronal and sagittal reformatted images. CLINICAL INFORMATION: hematuria, sepsis, UTI COMPARISON: CT November 22, 2018 DLP: 1805.[address] scans at [facility] use at least one of these dose optimization techniques: automat ed exposure control; mA and/or kV adjustment per patient size (includes targeted exams where dose is matched to clinical indication); or iterative reconstruction. FINDINGS: Noncontrast liver is unremarkable. Cholecystectomy clips. Small esophageal hiatal hernia. Normal nonc ontrast spleen. Small splenules. Fatty atrophy of the pancreas. Adrenal glands are normal. Renal parenchymal enhancement cannot be evaluated without contrast. No obs tructing renal or ureteral calculi. Ureters are decompressed. Bilateral mild pelvocaliectasis is unch anged. No evidence of obstructive uropathy. Pelvic phleboliths. Lung bases are well aerated. Diverticulosis. No evidence of acute diverticulitis. No evidence of small or large bowel obstruction. No free fluid in the pelvis. Grade 1 anterolisthesi s L5 on S1. Hemangioma L4 vertebral body. Incidental fat-containing umbilical hernia. CT/CT kidney stone 26762 IMPRESSION: 1. Renal parenchymal enhancement cannot be evaluated without contrast. No obst ructing renal or ureteral calculi. Bilateral renal mild pelvocaliectasis unchan ged. 2. Both ureters are decompressed. 3. Sigmoid diverticulosis. No evidence of acute diverticulitis. 4. Prior cholecystectomy. 5. Small esophageal hiatal hernia. 6. No other significant interval changes.
[2019-12-31] MEDS: ondansetron 2 mg/ML SDV 2 mL 4 MG IVP ×3 (09:16→22:28)
[2019-12-31] MEDS: phenazopyridine 100 mg Tablet 200 MG PO ×3 (10:14→19:54)
[2019-12-31] MEDS: pantoprazole DR 40 mg Tablet PO (10:14)
[2019-12-31] MEDS: aspirin 81 mg EC Tablet PO (10:14)
[2019-12-31] MEDS: atorvastatin 40 mg Tablet PO (10:14)
[2019-12-31] MEDS: clopidogrel 75 mg Tablet PO (10:15)
[2019-12-31] MEDS: pregabalin 25 mg Capsule PO (10:15)
--- NOTE | 2019-12-31 11:42 | PC.NURSE ---
DR MARTINEZ HAS STOPPED ZOSYN AFTER THIS NURSE HAD ALREADY HUNG THE MEDICATION IN THE PT ROOM DR HOLMED TO FINISH MEDICATION AND THEN START LEVOFLOXACIN WHEN THE NEXT DOSE OF ZOSYN WOULD NORMALLY START. MEDICATION WAS RETIMED.
--- NOTE | 2019-12-31 14:52 | P.PN_ITS ---
Subjective Subjective: Interval history: No acute events overnight. Patient has been having 2-3 episodes of diarrhea since last evening. Denies of having nausea, vomiting, headache, abdominal pain. States is feeling little weak. Her back pain has improved and gone back to its baseline. T max 24 hours 97.5 Fahrenheit Vitals/I&O/Wt Last Vital Signs Temp 97.9 F 12/31/19 11:14 Pulse 69 12/31/19 11:14 Resp 18 12/31/19 11:14 BP 148/66 12/31/19 11:14 Pulse Ox 94 12/31/19 11:14 12/30/19 12/31/19 12/31/19 22:59 06:59 14:59 Intake Total 830 / 2559.167 1020 / 3579.167 200 / 200 Output Total 950 / 950 400 / 1350 350 / 350 Balance -120 / 1609.167 620 / 2229.167 -150 / -150 Physical Exam Const: COMMON NORMALS: no apparent distress and oriented x3 NUTRITIONAL APPEARANCE: obese OTHER: Appears tired, but not in discomfort. HENMT: COMMON NORMALS: oropharynx normal Neck/C-Spine: COMMON NORMALS: no JVD Resp: COMMON NORMALS: normal respiratory effort and clear to auscultation bilaterally AUSCULTATION: clear to auscultation bilaterally Cardio: COMMON NORMALS: no JVD, regular rhythm, S1 normal heart sound, S2 normal heart sound and no murmurs RHYTHM: regular rhythm HEART SOUNDS: S1 normal and S2 normal GI: COMMON NORMALS: normal to inspection, nondistended, normoactive bowel sounds, soft to palpation and non-tender PALPATION: Yes soft Extremity: COMMON NORMALS: no joint enlargement and no pedal edema Neuro: COMMON NORMALS: oriented x3 and moves all extremities Skin: COMMON NORMALS: no rashes or lesions noted GENERAL SKIN EXAM: no rashes or lesions noted Data : 12/31/19 04:30 12/31/19 04:30 Micro: Microbiology 12/28/19 15:20 Blood Culture - Preliminary Blood Escherichia coli 12/28/19 15:30 Blood Culture - Preliminary Blood Escherichia coli 12/30/19 08:46 Blood Culture - Preliminary Blood NEGATIVE TO DATE 12/30/19 08:42 Blood Culture - Preliminary Blood NEGATIVE TO DATE A&P Assessment and plan (1) Escherichia coli septicemia: Status: Acute (2) Sepsis: Status: Acute (3) UTI (urinary tract infection): Complicated urinary tract infection with sepsis, suspected pyelonephritis. As above. At this time continue Zosyn. Status: Acute (4) Acute kidney injury: Status: Acute (5) PVC (premature ventricular contraction): PVCs, history of V. tach and cardiac arrest in the past Dr. Goldberg has started her on metoprolol, Holter monitoring has revealed PVCs, nonsustained V. tach and PACs Currently EKG showing bifascicular block heart rate about 90 but not above 100 Hemodynamically stable. Maintain cardiac monitoring. Status: Acute (6) Seropositive rheumatoid arthritis: With sacroiliitis. Reported on Simponi currently every 8 weeks. Status: Acute (7) Sciatic radiculitis: Worsening kidney injury, will decrease Lyrica dose further to 25 mg once a day. These are capsules, so we are unable to break them down further. Status: Chronic Additional A&P Information E. coli bacteremia: Sepsis: UTI/pyelonephritis: CT abdomen consistent with possible pyelonephritis but no obstruction seen. Low-yield scan as was done without contrast given the STEVE. Blood cultures from admission has been positive for E. coli along with urine culture for admission. Blood culture since ninth have been negative for now. We will change the antibiotics as per the culture results to levofloxacin every 48 hours given the STEVE. COVID 19 not detected. Diarrhea: Given the past history of C. difficile along with patient being on an tibiotic for now we will do stool studies. STEVE: Baseline creatinine seems to be 1.1?1.3. Creatinine trending down to 1.6 today. Continue IV hydration gently at 50 cc/h. Medical reconciliation done for nephrotoxic drugs. We will continue to monitor BMP daily. History of multiple VPCs/nonsustained V. tach in the past: We will start patient on Lopressor but at a lower dose of 12.5 mg twice daily. Will continue to monitor heart rate. No bradycardia at present. Early in the admission patient had few episodes of bradycardia going down to 55 bpm while being on Lopressor. Past history of C. difficile with antibiotic treatment. Cardiac diet. Heparin for DVT prophylaxis. Full code. Attestations Medical Necessity Statement*: E. coli bacteremia, pyelonephritis, STEVE Time Spent in Patient Care: Greater than 35 minutes Coding Level of Care Code Acute Supervisor Continuous [employer] for g Fwd Diagnoses Escherichia coli septicemia A41.51 Sepsis A41.9 UTI (urinary tract infection) N39.0 Acute kidney injury N17.9 PVC (premature ventricular contraction) I49.3 Seropositive rheumatoid arthritis M05.9 Sciatic radiculitis M51.17
[2019-12-31] MEDS: levofloxacin-dextrose 5 % 750 MG/150 ML PREMIX 100 MG IV (17:50)
[2019-12-31] MEDS: metoprolol tartrate 25 mg Tablet 12.5 MG PO (17:51)
[2019-12-31] MEDS: acetaminophen 325 mg Tablet 650 MG PO (21:01)
[2019-12-31] MEDS: tizanidine 4 mg Tablet PO (21:01)
[2020-01-01] VITALS: BP 129/72; PULSE 56; RESP 20; TEMP 36.9; O2SAT 96
[2020-01-01] MEDS: heparin 5,000 unit/mL INJ 1 mL 5000 UNIT SUBCUT (03:13)
[2020-01-01 03:48] VITALS: RESP 18
[2020-01-01] MEDS: HYDROmorphone 1 mg/mL INJ 1 mL IVP (03:48)
[2020-01-01] MEDS: ondansetron 2 mg/ML SDV 2 mL 4 MG IVP (03:49)
[2020-01-01 04:00] VITALS: BP 131/75; PULSE 54; RESP 18; TEMP 36.8; O2SAT 93
[2020-01-01 05:23] LABS: Basophils % 0.2 %; Eosinophils # 0.1 10^3/uL (0.0-0.8); Eosinophils % 1.2 %; Hematocrit 29.8 % (37.0-47.0); Hemoglobin 9.5 g/dL (11.5-15.3); Lymphocytes # 1.4 10^3/uL (0.8-4.8); Lymphocytes % 15.2 %; Mean Corpuscular HGB Conc 31.9 g/dL (30.0-36.0); Mean Corpuscular Hemoglobin 28.3 pg (28.0-34.0); Mean Corpuscular Volume 88.7 fL (81-99); Mean Platelet Volume 11.2 fL (7.4-10.4); Monocytes # 0.9 10^3/uL (0.2-0.9); Neutrophils # 6.9 10^3/uL (1.8-7.7); Neutrophils % 72.9 %; Nucleated Red Blood Cells % 0 %; Platelet Count 363 10^3/cmm (130-400); Red Blood Count 3.36 10^6/uL (4.1-5.3); Red Cell Distribution Width 13.2 % (12.1-15.1); White Blood Count 9.5 10^3/uL (4.0-10.0)
[2020-01-01 05:38] LABS: Alanine Aminotransferase 28 U/L (0-33); Albumin Level 3.1 g/dL (3.5-5.2); Alkaline Phosphatase 92 IU/L (35-105); Anion Gap 17.2 (5-19); Aspartate Amino Transferase 43 U/L (0-32); Blood Urea Nitrogen 22 mg/dL (8-23); Calcium 9.1 mg/dL (8.5-10.5); Carbon Dioxide 19 mmol/L (22-29); Chloride 107 mmol/L (98-107); Globulin 4.3 g/dL (1.3-4.6); Glomerular Filtration Rate 40.7 mL/min (90-130); Glucose 102 mg/dL (65-115); Osmolality Calculated 287 mOsm/kg (285-295); Potassium 3.2 mmol/L (3.5-5.1); Sodium 140 mmol/L (136-145); Total Bilirubin 0.3 mg/dL (0.15-1.2); Total Protein 7.4 g/dL (6.6-8.7)
[2020-01-01 08:00] VITALS: BP 146/62; PULSE 55; RESP 18; TEMP 36.8; O2SAT 96
[2020-01-01] MEDS: metoprolol tartrate 25 mg Tablet 12.5 MG PO (10:24)
[2020-01-01] MEDS: atorvastatin 40 mg Tablet PO (10:24)
[2020-01-01] MEDS: phenazopyridine 100 mg Tablet 200 MG PO (10:24)
[2020-01-01] MEDS: clopidogrel 75 mg Tablet PO (10:24)
[2020-01-01] MEDS: aspirin 81 mg EC Tablet PO (10:24)
[2020-01-01] MEDS: pantoprazole DR 40 mg Tablet PO (10:24)
--- NOTE | 2020-01-01 10:24 | PM.DCS ---
Discharge Providers Date of Admission: 12/28/19 17:41 Date of Discharge: January 01, 2020 Attending Provider at Admission: Malachi Mcpherson Attending Provider at Discharge: Len Garcia MD Primary Care Provider: Lien Rangel NP Diagnoses at Discharge Discharge Diagnosis (1) Escherichia coli septicemia: Status: Acute (2) Sepsis: Status: Acute (3) UTI (urinary tract infection): Status: Acute (4) Acute kidney injury: Status: Acute (5) PVC (premature ventricular contraction): Status: Acute (6) Seropositive rheumatoid arthritis: Status: Acute (7) Sciatic radiculitis: Status: Chronic Reason for Visit Reason for Visit: Reason For Visit: N/V, FEVER, CP Hospital Course Discharge Summary: Gracy Montemayor is a 69 year old female who has history of seropositive rheumatoid arthritis diagnosed in 1994(did not tolerate methotrexate and Remicade due to hair loss currently on Simponi since 2017), back pain due to sciatica, complicated hospitalization in December 2018 at [facility] when she developed V. tach, cardiac arrest, C. difficile, pyelonephritis, currently seeing Dr. Goldberg who has put her on metoprolol for multiple PVCs and SVT, as per Holter monitoring reading, LAD 75 to 80% stenosis status post stent 08/10, EF 65%, presented on December 27 with chief complaint of dysuria. Patient was hemodynamically stable and was found to be in acute kidney injury with creatinine up to 1.6. CT abdomen was done which was negative for any obstructive uropathy. She was started preemptively on IV ceftriaxone. Blood cultures and urine culture from day of admission came positive for pansensitive E. coli. Repeat blood cultures on December 29 continue to be negative and patient has remained hemodynamically stable. Her acute kidney injury improved very gradually with IV fluids with a creatinine on day of discharge of 1.3 with baseline creatinine seems to be running from 1?1.3. She was discharged home with advice to continue oral levofloxacin as per her creatinine clearance of 50 mg daily till January 11 to finish a course of 14 days after last positive blood culture. Patient is advised to check her BMP in 1 week and follow-up with her primary care physician. During the admission patient was found to have recurrent bradycardia with her heart rate going down to low 50s so her dose of metoprolol was decreased and she tolerated it well. Because patient was admitted and acute kidney injury spironolactone has been withheld. During all her old admission patient did not have any diarrhea. This is important to know as patient has a history of C. difficile and has been on antibiotics at present. She is being discharged in hemodynamically stable condition advised to follow-up her primary care physician. Physical Exam Const: COMMON NORMALS: no apparent distress and oriented x3 NUTRITIONAL APPEARANCE: obese OTHER: AAOx3, no acute distress, well hydrated HENMT: COMMON NORMALS: oropharynx normal Neck/C-Spine: COMMON NORMALS: no JVD Resp: COMMON NORMALS: normal respiratory effort and clear to auscultation bilaterally AUSCULTATION: clear to auscultation bilaterally Cardio: COMMON NORMALS: no JVD, regular rhythm, S1 normal heart sound, S2 normal heart sound and no murmurs RHYTHM: regular rhythm HEART SOUNDS: S1 normal and S2 normal GI: COMMON NORMALS: normal to inspection, nondistended, normoactive bowel sounds, soft to palpation and non-tender PALPATION: Yes soft Extremity: COMMON NORMALS: no joint enlargement and no pedal edema Neuro: COMMON NORMALS: oriented x3 and moves all extremities Skin: COMMON NORMALS: no rashes or lesions noted GENERAL SKIN EXAM: no rashes or lesions noted Discharge Data Data Completed and Pending: Completed Studies During Hospitalization Category Date Time Status CT kidney stone 7 4176 Routine Cat Scan 12/31/19 08:00 Completed XR chest 1V eben ble [id number] Stat Exams 12/28/19 16:13 Completed Pending at discharge Category Date Time Status Blood Culture Sta t Lab 12/28/19 15:30 Results Blood Culture Sta t Lab 12/30/19 08:46 Results Clostridium Diffi cile BY PCR Routin e Lab 01/01/20 10:08 Received Enteric Bacterial Panel by PCR Rout ine Lab 12/31/19 10:55 Ordered Enteric Parasite Panel by PCR [facility] ne Lab 12/31/19 10:55 Ordered Immunochemical Fe makenna OCB Routine Lab 12/31/19 10:55 Ordered Lactoferrin Raziai ne Lab 12/31/19 10:55 Ordered Labs from last 24 hours 01/01/20 01/01/20 04:27 04:27 WBC 9.5 RBC 3.36 L Hgb 9.5 L Hct 29.8 L MCV 88.7 MCH 28.3 MCHC 31.9 RDW 13.2 Plt Count 363 MPV 11.2 H Neut % (Auto) 72.9 Lymph % (Auto) 15.2 [place] % (Auto) 9.0 Eos % (Auto) 1.2 Baso % (Auto) 0.2 Neut # (Auto) 6.9 Lymph # (Auto) 1.4 [place] # (Auto) 0.9 Eos # (Auto) 0.1 Baso # (Auto) 0.0 Nucleated RBC % (a uto) 0 Nucleated RBCs # 0.0 Sodium 140 Potassium 3.2 L Chloride 107 Carbon Dioxide 19 L Anion Gap 17.2 BUN 22 Creatinine 1.3 H GFR Calculation 40.7 L Glucose 102 Calculated Osmolal ity 287 Calcium 9.1 Total Bilirubin 0.3 AST 43 H ALT 28 Alkaline Phosphata se 92 Total Protein 7.4 Albumin 3.1 L Globulin 4.3 Vitals: Last Vital Signs Temp 98.2 F 01/01/20 08:00 Pulse 55 L 01/01/20 08:00 Resp 18 01/01/20 08:00 BP 146/62 01/01/20 08:00 Pulse Ox 96 01/01/20 08:00 Discharge Plan Discharge Patient Disposition: Home, Self-Care Condition: Stable Prescriptions: New metoprolol tartrate 25 mg Tablet 12.5 mg PO BID Qty: 30 RF: 0 levofloxacin 750 mg tablet 750 mg PO Q24H 12 Days Qty: 12 RF: 0 Continued lidocaine-epinephrine 2 %-1:100,000 solution 1 ml SUBCUT ONCE Qty: 1 RF: 0 pantoprazole 40 mg tablet,delayed release (DR/EC) 40 mg PO DAILY RF: 0 clopidogrel [Plavix] 75 mg tablet 75 mg PO DAILY RF: 0 aspirin 81 mg tablet,delayed release (DR/EC) 81 mg PO DAILY RF: 0 nitroglycerin 0.4 mg tablet, sublingual 0.4 mg SUBLINGUAL .once up to 3 pills RF: 0 cyanocobalamin (vitamin B-12) [Vitamin B-12] 500 mcg tablet 500 mcg PO DAILY RF: 0 hydrocodone-acetaminophen 10-325 mg tablet 1 tab PO .five times daily PRN (Reason: pain) 30 Days Qty: 150 RF: 0 hydrocodone-acetaminophen 10-325 mg tablet 1 tab PO .5 times daily PRN (Reason: pain) 30 Days Qty: 150 RF: 0 tizanidine 4 mg tablet 4 mg PO .at bedtime PRN (Reason: muscle spasticity) 30 Days Qty: 30 RF: 0 pregabalin [Lyrica] 50 mg capsule 50 mg PO TID 30 Days Qty: 90 RF: 1 phenazopyridine [Pyridium] 200 mg tablet 200 mg PO TID Qty: 6 RF: 0 ondansetron HCl [Zofran] 4 mg tablet 4 mg PO Q8H PRN (Reason: nausea and vomiting) 3 Days Qty: 10 RF: 0 atorvastatin 40 mg tablet 40 mg PO DAILY RF: 0 Xiidra 5 % dropperette See Rx Instructions .ROUTE .COMPLEX RF: 0 Discontinued metoprolol tartrate 25 mg tablet 25 mg PO BID RF: 0 nitrofurantoin monohyd/m-cryst [Macrobid] 100 mg capsule 100 mg PO Q12H 7 Days Qty: 14 RF: 0 spironolactone 25 mg tablet 12.5 mg PO DAILY Qty: 45 RF: 3 Discharge Orders: Discharge Order (Routine); Ordered 01/01/20 Ordered By: Len Garcia Referrals: Lien Rangel NP [Primary Care Provider] - 7-10 days (Please call Friday to set up a follow up appointment) Discharge Diet: Cardiac Discharge Activity: Increase activity as tolerated Patient Instructions: Metoprolol (By mouth), Levofloxacin (By mouth), Hypertension, Urinary Tract Infection in Women (GEN), Sepsis (GEN) Activity Restrictions/Additional Instructions: Please check BMP in 1 week and follow up with your primary care provider Please finish the antibiotic course as directed. Continue levofloxacin till January 11. Discharge Attestations Time Spent in Discharge Care*: greater than 30 min Specific Discharge Activities: Specific discharge activities: educating patient, discussing with case therapist/social workers/dc planners, documenting/other paperwork and evaluating patient/reviewing data Status at Discharge: Cognitive status at discharge: cognitively intact, Behavioral status at discharge: cooperative, Functional status at discharge: independent ambulation Overall status at discharge: patient is back to baseline Quality Metrics Clinical Quality Measures During this hospital stay, did patient experience: None Coding Level of Care Code Acute Decorating Equipment Setter for [facility] Fwd Exam Comprehensive Diagnoses Escherichia coli septicemia A41.51 Sepsis A41.9 UTI (urinary tract infection) N39.0 Acute kidney injury N17.9 PVC (premature ventricular contraction) I49.3 Seropositive rheumatoid arthritis M05.9 Sciatic radiculitis M51.17
[2020-01-01] MEDS: pregabalin 25 mg Capsule PO (10:27)
[2020-01-01 10:45] VITALS: BP 146/62; PULSE 55; RESP 18; TEMP 36.8; O2SAT 96
[2020-01-01 13:22] VITALS: BP 146/62; PULSE 55; RESP 18; TEMP 36.8; O2SAT 96
--- NOTE | 2020-01-01 15:30 | PM.EVENT ---
Event Note Event Note: Got a call from daughter regarding discharge recommendations and that patient has had one episode of vomiting and soft bowel movement since discharge. Explained to the daughter that patient stool studies were negative for C. difficile, lactoferrin or any other infectious source so at this point it is important to maintain her hydration with oral fluids of around 2 to 2.5 L every day. Patient can take Imodium if she has more than 5 bowel movements a day as her C. difficile is negative. She can use probiotic and diarrhea is most likely because of the antibiotic. Also explained that is of most important that she takes her antibiotics and finish a course of oral antibiotic for 14 days till January 11. And that she can get patient back to the ER if she continues to have vomiting and is not able to keep down. For nausea I did explain that I can prescribe her ondansetron which she states she already has. Explained that she can take 4 mg every 8 hour as needed. Event Notes Attestations Time Spent in Patient Care: 16 - 35 minutes
== END 2020-01-01 13:00 | disposition home or self-care (01) | DRG 872 ==
LOC: ER 16:49 → MEDSURG 18:30
PROVIDERS: Internal Medicine; Admitting Provider Internal Medicine; Emergency Provider Emergency Medicine; Family Provider Nurse Practitioner Family; PCP Nurse Practitioner Family; Visit Provider Student in an Organized Health Care Education/Training Program
DX: A41.9 Sepsis, unspecified organism (principal); N17.9 Acute kidney failure, unspecified; I47.2 Ventricular tachycardia; N39.0 Urinary tract infection, site not specified; B96.20 Unspecified Escherichia coli [E. coli] as the cause of diseases classified elsewhere; M06.9 Rheumatoid arthritis, unspecified; M54.10 Radiculopathy, site unspecified; Z79.82 Long term (current) use of aspirin; Z79.02 Long term (current) use of antithrombotics/antiplatelets; R19.7 Diarrhea, unspecified; I25.10 Atherosclerotic heart disease of native coronary artery without angina pectoris; M17.0 Bilateral primary osteoarthritis of knee; E78.5 Hyperlipidemia, unspecified; M79.7 Fibromyalgia; I10 Essential (primary) hypertension
CPT/HCPCS: 12345; 36415; 71045; 74176; 80048; 80053; 81000; 81001; 82274; 82570; 83605; 83630; 83690; 84484; 84540; 85025; 87040; 87077; 87086; 87186; 87205; 87493; 87506; 87635; 87804; 93005; 96372; 96374; 96375; 99283; J1170; J1644; J1956; J2405; J2543; J3370; J7030; J7040; J7050

== ENCOUNTER → 2020-01-18 09:42 | Outpatient (BNVA) | payer MEDICARE, MEDICAID, SELFPAY | PROVIDERS: Family Provider Nurse Practitioner Family; PCP Nurse Practitioner Family; Visit Provider Nurse Practitioner | DX: Z79.899 Other long term (current) drug therapy (principal); N39.0 Urinary tract infection, site not specified; M06.9 Rheumatoid arthritis, unspecified | CPT/HCPCS: 80053; 81000 ==

== ENCOUNTER 2020-01-24 10:52 | Outpatient (CLI) | payer MEDICARE, MEDICAID, SELFPAY ==
[2020-01-24 11:13] VITALS: BP 118/67; PULSE 73; RESP 18; TEMP 36.7; O2SAT 95
[2020-01-24 12:34] VITALS: BP 115/67; PULSE 64; RESP 16; TEMP 36.7; O2SAT 94
--- NOTE | 2020-01-24 12:35 | PC.NURSE ---
1100 c/o sciatic nerve, hip pain. C/o knee weakness due to pain. c/o L thumb pain after shutting it in a walker. Using cane for ambulation aide. Requires 1-2 assist to get up out of chairs. States having xrays today at [facility] [place] and seeing Pain Management 01/27/20.
== END 2020-01-24 10:53 | disposition home or self-care (01) ==
LOC: RHEOACUTE 10:59
PROVIDERS: Family Provider Nurse Practitioner Family; PCP Nurse Practitioner Family; Visit Provider Internal Medicine Rheumatology
DX: M05.79 Rheumatoid arthritis with rheumatoid factor of multiple sites without organ or systems involvement (principal)
CPT/HCPCS: 96365; J1602

== ENCOUNTER 2020-01-24 12:39 | Outpatient (CLI) | payer MEDICARE, MEDICAID, SELFPAY ==
--- NOTE | 2020-01-24 13:05 | XR_ITS ---
WS: [id number] XR lumbar spine min 4V [id number] REASON FOR EXAM: PAIN FINDINGS: Thoracolumbar rotoscoliosis convex to the right. Facet arthropathy L5-S1. No evidence of spondylolysis. Grade 1 spondylolisthesis L5-S1. XR/XR lumbar spine min 4V [id number] IMPRESSION: Grade 1 spondylolisthesis L5-S1 Rotoscoliosis convex to the right. Facet arthropathy L5-S1.
--- NOTE | 2020-01-24 13:05 | XR_ITS ---
WS: [id number] XR hand LT min 3V* [id number] REASON FOR EXAM: pain FINDINGS: Degenerated changes of the first metacarpal carpal articulation. There is degenerate changes of the distal interphalangeal joints. There is mild degenerate changes of the ulna articulating with the carpal bones. XR/XR hand LT min 3V* [id number] IMPRESSION: Degenerate changes of the first metacarpal carpal articulation.
== END 2020-01-24 12:40 | disposition home or self-care (01) ==
PROVIDERS: Family Provider Nurse Practitioner Family; PCP Nurse Practitioner Family; Visit Provider Nurse Practitioner Family
DX: M54.9 Dorsalgia, unspecified (principal); M79.642 Pain in left hand; M47.817 Spondylosis without myelopathy or radiculopathy, lumbosacral region
CPT/HCPCS: 72114; 73130

== ENCOUNTER 2020-02-17 14:45 | Outpatient (CLI) | payer MEDICARE, MEDICAID, SELFPAY ==
--- NOTE | 2020-02-17 15:00 | USCV_ITS ---
Gracy Montemayor Age: 69 Gender: F : 1950 Exam Date: 02/17/2020 15:09 Ordering Phys: Lien Rangel NP Technologist: Janice Connelly Exam Location: [facility] [place] Indication: bilateral leg pain Risk Factors: Previous Vascular Surgery: RIGHT LEFT BP: 145.0 / BP: 140.0/ 0 0 Waveform Velocity (cm/s) Velocity (cm/s) Waveform Triphasic 121.2 Iliac Prox 133.7 Triphasic Triphasic 94.0 Iliac Mid 86.7 Triphasic Triphasic Iliac Distal Triphasic 80.4 102.5 Triphasic 91.9 CHEF HEAD 73.0 Triphasic Triphasic 58.3 SFA Prox 106.5 Triphasic Triphasic 55.9 SFA Mid 67.5 Triphasic Triphasic 87.2 SFA Dist 67.5 Triphasic Triphasic 49.6 POP 64.9 Triphasic Triphasic 75.2 ELECTRONIC WIRER 71.8 Triphasic Triphasic 34.8 DPA 64.1 Triphasic 1.0 DENTON 1.0 FINDINGS Right brachial- 145, right DPA 140, right ELECTRONIC WIRER 140 Left brachial - 140, left DPA 140, left ELECTRONIC WIRER 135 Intimal thickening and minimal plaques in the femoral and iliac arteries bilaterally CONCLUSIONS Normal resting ABIs bilaterally Normal arterial Doppler waveforms bilaterally Normal thickening and minimal plaques in the femoral and iliac arteries bilaterally No significant arterial obstruction, based on the above findings Dr Annamaria Brandon MD [facility] (Electronically Signed) Final Date: 17 Feb 2020 19:54 S
== END 2020-02-17 14:46 | disposition home or self-care (01) ==
LOC: RAD 14:49
PROVIDERS: PCP Nurse Practitioner Family; Visit Provider Nurse Practitioner Family
DX: M79.604 Pain in right leg (principal); M79.605 Pain in left leg
CPT/HCPCS: 93925

== ENCOUNTER → 2020-02-23 10:42 | Outpatient (BNVA) | payer MEDICARE, MEDICAID, SELFPAY | PROVIDERS: PCP Nurse Practitioner Family; Visit Provider Specialist | DX: M17.0 Bilateral primary osteoarthritis of knee (principal) | CPT/HCPCS: 73560; 73565 ==

== ENCOUNTER → 2020-03-09 09:24 | Outpatient (BNVA) | payer MEDICARE, MEDICAID, SELFPAY | PROVIDERS: PCP Nurse Practitioner Family; Visit Provider Internal Medicine | DX: M35.3 Polymyalgia rheumatica (principal); M17.0 Bilateral primary osteoarthritis of knee; M05.9 Rheumatoid arthritis with rheumatoid factor, unspecified; Z91.81 History of falling; Z79.899 Other long term (current) drug therapy | CPT/HCPCS: 36415; 80053; 85025; 85651; 86140; 99213 ==

== ENCOUNTER 2020-03-14 06:00 | Outpatient (RCR) | payer MEDICARE, MEDICAID, SELFPAY | END 2020-03-21 23:59 | disposition home or self-care (01) | LOC: APT 06:00 | PROVIDERS: PCP Nurse Practitioner Family; Referring Provider Internal Medicine; Visit Provider Internal Medicine | DX: M17.0 Bilateral primary osteoarthritis of knee (principal) | CPT/HCPCS: 97110; 97163 ==

== ENCOUNTER 2020-03-21 12:34 | Outpatient (CLI) | payer MEDICARE, MEDICAID, SELFPAY ==
[2020-03-21 12:53] VITALS: BP 136/69; PULSE 65; RESP 16; TEMP 36.8; O2SAT 96
== END 2020-03-21 12:35 | disposition home or self-care (01) ==
LOC: RHEOACUTE 12:36
PROVIDERS: PCP Nurse Practitioner Family; Visit Provider Internal Medicine Rheumatology
DX: M05.79 Rheumatoid arthritis with rheumatoid factor of multiple sites without organ or systems involvement (principal)
CPT/HCPCS: 96365; J1602

== ENCOUNTER 2020-03-22 06:00 | Outpatient (RCR) | payer MEDICARE, MEDICAID, SELFPAY | END 2020-04-21 23:59 | disposition home or self-care (01) | LOC: APT 06:00 | PROVIDERS: PCP Nurse Practitioner Family; Referring Provider Internal Medicine; Visit Provider Internal Medicine | DX: M17.0 Bilateral primary osteoarthritis of knee (principal) | CPT/HCPCS: 97110; 97164 ==

== ENCOUNTER → 2020-03-30 10:18 | Outpatient (BNVA) | payer MEDICARE, MEDICAID, SELFPAY | PROVIDERS: Family Provider Nurse Practitioner Family; PCP Nurse Practitioner Family; Visit Provider Nurse Practitioner | DX: M54.42 Lumbago with sciatica, left side (principal); M54.2 Cervicalgia; Z79.891 Long term (current) use of opiate analgesic | CPT/HCPCS: 99213; 99214 ==

== ENCOUNTER 2020-04-22 06:00 | Outpatient (RCR) | payer MEDICARE, MEDICAID, SELFPAY | END 2020-05-22 23:59 | disposition home or self-care (01) | LOC: APT 06:00 | PROVIDERS: PCP Nurse Practitioner Family; Referring Provider Internal Medicine; Visit Provider Internal Medicine | DX: M17.0 Bilateral primary osteoarthritis of knee (principal) | CPT/HCPCS: 97110; 97112 ==

== ENCOUNTER 2020-05-16 12:35 | Outpatient (CLI) | payer MEDICARE, MEDICAID, SELFPAY ==
[2020-05-16 13:33] VITALS: BMI 37.3
--- NOTE | 2020-05-16 13:48 | PC.NURSE ---
Unable to obtain lab specimen with IV stick. RADIO INTELLIGENCE OPERATOR to R hand obtained 2ml blood.
--- NOTE | 2020-05-16 14:27 | PC.NURSE ---
Reviewed med list. Current list printed and given to pt.
[2020-05-16 14:32] VITALS: BP 158/90; PULSE 66; RESP 16; O2SAT 96
== END 2020-05-16 12:36 | disposition home or self-care (01) ==
LOC: RHEOACUTE 12:36
PROVIDERS: PCP Nurse Practitioner Family; Visit Provider Internal Medicine Rheumatology
DX: M05.79 Rheumatoid arthritis with rheumatoid factor of multiple sites without organ or systems involvement (principal)
CPT/HCPCS: 85025; 96365; J1602

== ENCOUNTER 2020-05-23 06:00 | Outpatient (RCR) | payer MEDICARE, MEDICAID, SELFPAY | END 2020-06-21 23:59 | disposition home or self-care (01) | LOC: APT 06:00 | PROVIDERS: PCP Nurse Practitioner Family; Referring Provider Internal Medicine; Visit Provider Internal Medicine | DX: M17.0 Bilateral primary osteoarthritis of knee (principal) | CPT/HCPCS: 97110 ==

== ENCOUNTER → 2020-05-31 14:19 | Outpatient (BNVA) | payer MEDICARE, MEDICAID, SELFPAY | PROVIDERS: Family Provider Nurse Practitioner Family; PCP Nurse Practitioner Family; Visit Provider Anesthesiology | DX: M54.42 Lumbago with sciatica, left side (principal); M54.41 Lumbago with sciatica, right side; M54.2 Cervicalgia; M17.0 Bilateral primary osteoarthritis of knee; Z79.891 Long term (current) use of opiate analgesic | CPT/HCPCS: 99214 ==

== ENCOUNTER → 2020-06-01 11:00 | Outpatient (BNVA) | payer MEDICARE, MEDICAID, SELFPAY | PROVIDERS: Family Provider Nurse Practitioner Family; PCP Nurse Practitioner Family; Visit Provider Internal Medicine Rheumatology | DX: Z79.899 Other long term (current) drug therapy (principal); M05.9 Rheumatoid arthritis with rheumatoid factor, unspecified; M17.0 Bilateral primary osteoarthritis of knee | CPT/HCPCS: 80076; 82565; 85025; 85651; 86140 ==

== ENCOUNTER → 2020-06-13 09:45 | Outpatient (BNVA) | payer MEDICARE, MEDICAID, SELFPAY | PROVIDERS: Family Provider Nurse Practitioner Family; PCP Nurse Practitioner Family; Visit Provider Internal Medicine | DX: M06.9 Rheumatoid arthritis, unspecified (principal); Z79.899 Other long term (current) drug therapy | CPT/HCPCS: 99213 ==

== ENCOUNTER 2020-07-13 13:22 | Outpatient (CLI) | payer MEDICARE, MEDICAID, SELFPAY ==
[2020-07-13 13:25] VITALS: BP 165/85; PULSE 55; RESP 16; TEMP 36.6; O2SAT 96
[2020-07-13 14:15] VITALS: BMI 38.2
[2020-07-13 15:04] VITALS: BP 160/82; PULSE 56; RESP 16; O2SAT 96
--- NOTE | 2020-07-13 15:06 | PC.NURSE ---
Labs obtained with IV start.
== END 2020-07-13 13:23 | disposition home or self-care (01) ==
LOC: RHEOACUTE 13:23
PROVIDERS: Family Provider Nurse Practitioner Family; PCP Nurse Practitioner Family; Visit Provider Internal Medicine
DX: M05.79 Rheumatoid arthritis with rheumatoid factor of multiple sites without organ or systems involvement (principal); Z79.899 Other long term (current) drug therapy
CPT/HCPCS: 85025; 96365; J1602

== ENCOUNTER → 2020-07-28 13:30 | Outpatient (BNVA) | payer MEDICARE, MEDICAID, SELFPAY | PROVIDERS: Family Provider Nurse Practitioner Family; PCP Nurse Practitioner Family; Visit Provider Anesthesiology | DX: M54.42 Lumbago with sciatica, left side (principal); M54.41 Lumbago with sciatica, right side; M54.2 Cervicalgia; Z79.891 Long term (current) use of opiate analgesic | CPT/HCPCS: 99213; 99214 ==

== ENCOUNTER → 2020-08-15 13:41 | Outpatient (BNVA) | payer MEDICARE, MEDICAID, SELFPAY | PROVIDERS: Family Provider Nurse Practitioner Family; PCP Nurse Practitioner Family; Visit Provider Nurse Practitioner | DX: R30.0 Dysuria (principal) | CPT/HCPCS: 81003; 87077; 87086; 87184 ==

== ENCOUNTER 2020-08-16 07:49 | Outpatient (CLI) | payer MEDICARE, MEDICAID, SELFPAY ==
--- NOTE | 2020-08-16 08:00 | MR_ITS ---
WS: [id number] MRI LUMBAR SPINE NONCONTRAST HISTORY: M54.5 - Low back pain COMPARISON: 08/30/2006 TECHNIQUE: Sagittal and axial multisequence imaging is submitted. Mild increase in the thoracic kyphosis. Benign hemangioma at T1 and T8. Mild encroachment and narrowi ng of the cervical canal at C5-6. L5 anterolisthesis by 6 mm is similar to the prior studies. Very slight increase in the lumbar lordos is. No fracture or acute marrow edema. Disc spaces are mildly desiccated. Conus terminates normally at L1. L1-L2: Mild annular disc bulge. Mild LEFT foraminal narrowing. No high-grade stenosis. L2-L3: Mild annular disc bulging with mild ligamentum flavum hypertrophy. Facet joint arthritis great est on the LEFT. Mild LEFT foraminal narrowing and mild narrowing of the central canal. L3-L4: Mild annular disc bulging with facet and ligamentum flavum hypertrophy. Mild bilateral foramin al narrowing. Slight increase in the amount of epidural fat. Only mild central encroachment. L4-L5: Mild annular disc bulging and osteophytic ridging. Moderate ligamentum flavum hypertrophy and facet joint arthritis. Small amount of fluid in the facet joints. Trefoil narrowing of the central ca nal resulting in mild central, subarticular recess and bilateral foraminal stenosis. L5-S1: Broad-based disc bulging posteriorly. Facet joint arthritis is moderate. No significant stenos is. Mild bilateral foraminal narrowing, RIGHT greater than LEFT. Mildly prominent common bile duct measuring 8 mm is similar to a prior CT from 12/31/2019. MR/MR lumbar spine wo con* [id number] IMPRESSION: 1. Grade 1 L5 anterolisthesis resulting in mild bilateral foraminal stenosis, RIGHT greater than LEFT. Similar to the prior study from 2005. 2. Mild central, subarticular recess and bilateral foraminal stenosis at L4-5 as described above. Moderate L4-5 facet joint arthritis. 3. Mild central LEFT foraminal stenosis at L2-3. Advanced facet joint arthriti s on the LEFT.
== END 2020-08-16 07:50 | disposition home or self-care (01) ==
LOC: RADSHAW 07:54
PROVIDERS: PCP Nurse Practitioner Family; Visit Provider Anesthesiology
DX: M48.061 Spinal stenosis, lumbar region without neurogenic claudication (principal); M47.816 Spondylosis without myelopathy or radiculopathy, lumbar region
CPT/HCPCS: 72148

== ENCOUNTER 2020-09-06 14:46 | Outpatient (CLI) | payer MEDICARE, MEDICAID, SELFPAY ==
[2020-09-06 14:49] VITALS: BP 132/87; PULSE 72; RESP 16; TEMP 37; O2SAT 96; BMI 39.9
[2020-09-06 16:08] VITALS: BP 156/83; PULSE 70; TEMP 36.9; O2SAT 96
== END 2020-09-06 14:47 | disposition home or self-care (01) ==
LOC: RHEOACUTE 14:47
PROVIDERS: Family Provider Nurse Practitioner Family; PCP Nurse Practitioner Family; Visit Provider Internal Medicine
DX: Z79.899 Other long term (current) drug therapy; M05.79 Rheumatoid arthritis with rheumatoid factor of multiple sites without organ or systems involvement
CPT/HCPCS: 80053; 85025; 85651; 86140; 96365; J1602

== ENCOUNTER → 2020-09-27 10:40 | Outpatient (BNVA) | payer MEDICARE, MEDICAID, SELFPAY | PROVIDERS: Family Provider Nurse Practitioner Family; PCP Nurse Practitioner Family; Visit Provider Nurse Practitioner Family | DX: Z20.828 Contact with and (suspected) exposure to other viral communicable diseases (principal); B34.9 Viral infection, unspecified | CPT/HCPCS: 87635 ==

== ENCOUNTER → 2020-09-28 12:33 | Outpatient (BNVA) | payer MEDICARE, MEDICAID, SELFPAY | PROVIDERS: Family Provider Nurse Practitioner Family; PCP Nurse Practitioner Family; Visit Provider Anesthesiology | DX: G89.29 Other chronic pain (principal); M17.0 Bilateral primary osteoarthritis of knee; M53.3 Sacrococcygeal disorders, not elsewhere classified; M54.2 Cervicalgia; M25.511 Pain in right shoulder; M51.17 Intervertebral disc disorders with radiculopathy, lumbosacral region; M54.9 Dorsalgia, unspecified; Z79.899 Other long term (current) drug therapy; Z79.891 Long term (current) use of opiate analgesic | CPT/HCPCS: 99214 ==

== ENCOUNTER → 2020-10-02 13:09 | Outpatient (BNVA) | payer MEDICARE, MEDICAID, SELFPAY | PROVIDERS: Family Provider Nurse Practitioner Family; PCP Nurse Practitioner Family; Visit Provider Anesthesiology Pain Medicine | DX: G89.29 Other chronic pain (principal); M47.816 Spondylosis without myelopathy or radiculopathy, lumbar region; M54.2 Cervicalgia; M54.9 Dorsalgia, unspecified; Z79.891 Long term (current) use of opiate analgesic | CPT/HCPCS: 64493; 64494; 64495; J3490 ==

== ENCOUNTER → 2020-10-10 12:41 | Outpatient (BNVA) | payer MEDICARE, MEDICAID, SELFPAY | PROVIDERS: Family Provider Nurse Practitioner Family; PCP Nurse Practitioner Family; Visit Provider Internal Medicine | DX: M06.9 Rheumatoid arthritis, unspecified (principal); Z79.899 Other long term (current) drug therapy; Z79.52 Long term (current) use of systemic steroids | CPT/HCPCS: 87491; 87591; 87661; 99213 ==

== ENCOUNTER → 2020-10-20 12:55 | Outpatient (BNVA) | payer MEDICARE, MEDICAID, SELFPAY | PROVIDERS: Family Provider Nurse Practitioner Family; PCP Nurse Practitioner Family; Visit Provider Anesthesiology Pain Medicine | DX: G89.29 Other chronic pain (principal); M54.2 Cervicalgia; M54.9 Dorsalgia, unspecified | CPT/HCPCS: 99212 ==

== ENCOUNTER 2020-11-13 12:51 | Outpatient (CLI) | payer MEDICARE, MEDICAID, SELFPAY ==
[2020-11-13] MEDS: sodium chloride 0.9% (100 ml) 100 ML 45 ML (13:20)
[2020-11-13] MEDS: acetaminophen 325 mg Tablet 650 MG PO (13:25)
[2020-11-13] MEDS: diphenhydrAMINE 50 mg/mL SDV 1mL 25 MG IVP (13:38)
[2020-11-13 13:58] LABS: Basophils # 0.1 10^3/uL (0.0-0.1); Basophils % 1.1 %; Eosinophils # 0.4 10^3/uL (0.0-0.8); Eosinophils % 7.3 %; Hematocrit 38.4 % (37.0-47.0); Lymphocytes # 2.6 10^3/uL (0.8-4.8); Lymphocytes % 47.4 %; Mean Corpuscular HGB Conc 31.3 g/dL (30.0-36.0); Mean Corpuscular Hemoglobin 27.9 pg (28.0-34.0); Mean Corpuscular Volume 89.3 fL (81-99); Mean Platelet Volume 10.9 fL (7.4-10.4); Monocytes # 0.8 10^3/uL (0.2-0.9); Monocytes % 14.7 %; Neutrophils % 29.3 %; Nucleated Red Blood Cells % 0 %; Platelet Count 245 10^3/cmm (130-400); Red Cell Distribution Width 14.7 % (12.1-15.1); White Blood Count 5.5 10^3/uL (4.0-10.0)
[2020-11-13 14:05] VITALS: BP 143/84; PULSE 73; RESP 17; TEMP 36.9; O2SAT 97
[2020-11-13 14:35] LABS: Alanine Aminotransferase 17 U/L (0-33); Albumin Level 3.7 g/dL (3.5-5.2); Alkaline Phosphatase 96 IU/L (35-105); Anion Gap 12.6 (5-19); Aspartate Amino Transferase 29 U/L (0-32); Blood Urea Nitrogen 11 mg/dL (8-23); C Reactive Protein 6.7 mg/L (0.0-4.9); Calcium 8.8 mg/dL (8.5-10.5); Carbon Dioxide 24 mmol/L (22-29); Chloride 106 mmol/L (98-107); Chol HDL Ratio 6.14 mg/dL (0.0-4.40); Cholesterol 221 mg/dL (0-200); Globulin 3.5 g/dL (1.3-4.6); Glomerular Filtration Rate 44.5 mL/min (90-130); Glucose 93 mg/dL (65-115); HDL Cholesterol 36 mg/dL (60-100); LDL Cholesterol Calculated 135 mg/dL (50-129); LDL HDL Ratio 3.75 RATIO (0.00-3.22); Osmolality Calculated 287 mOsm/kg (285-295); Potassium 3.6 mmol/L (3.5-5.1); Sodium 139 mmol/L (136-145); Thyroid Stimulating Hormone 2.08 uIU/mL (0.27-4.20); Total Bilirubin 0.4 mg/dL (0.15-1.2); Total Protein 7.2 g/dL (6.6-8.7); Triglycerides 249 mg/dL (0-150)
[2020-11-13 14:50] VITALS: BP 121/78; PULSE 77; RESP 17; TEMP 36.6; O2SAT 97
--- NOTE | 2020-11-21 08:45 | PC.NURSE ---
Due to an administrative issue we are doing a late entry for clarity of the medical record. The infusion case was routine and the approximate stop time was 1440 based upon the start time of 1410.
== END 2020-11-13 12:52 | disposition home or self-care (01) ==
PROVIDERS: Family Provider Nurse Practitioner Family; PCP Nurse Practitioner Family; Visit Provider Internal Medicine
DX: M05.79 Rheumatoid arthritis with rheumatoid factor of multiple sites without organ or systems involvement (principal); I25.10 Atherosclerotic heart disease of native coronary artery without angina pectoris; R53.83 Other fatigue; I49.3 Ventricular premature depolarization
CPT/HCPCS: 80053; 80061; 84443; 85025; 86140; 96365; 96375; J1200; J1602; J2920

== ENCOUNTER → 2020-11-22 11:58 | Outpatient (BNVA) | payer MEDICARE, MEDICAID, SELFPAY | PROVIDERS: Family Provider Nurse Practitioner Family; PCP Nurse Practitioner Family; Visit Provider Nurse Practitioner | DX: G89.29 Other chronic pain (principal); M51.17 Intervertebral disc disorders with radiculopathy, lumbosacral region; M53.3 Sacrococcygeal disorders, not elsewhere classified; M54.9 Dorsalgia, unspecified; M54.2 Cervicalgia; M17.0 Bilateral primary osteoarthritis of knee; M25.511 Pain in right shoulder; M06.9 Rheumatoid arthritis, unspecified; Z79.891 Long term (current) use of opiate analgesic | CPT/HCPCS: 99214 ==

== ENCOUNTER → 2020-12-14 10:20 | Outpatient (BNVA) | payer MEDICARE, MEDICAID, SELFPAY | PROVIDERS: Family Provider Nurse Practitioner Family; PCP Nurse Practitioner Family; Visit Provider Nurse Practitioner | DX: G89.29 Other chronic pain (principal); M51.17 Intervertebral disc disorders with radiculopathy, lumbosacral region; M54.9 Dorsalgia, unspecified; M17.0 Bilateral primary osteoarthritis of knee; M54.2 Cervicalgia; M53.3 Sacrococcygeal disorders, not elsewhere classified; M05.9 Rheumatoid arthritis with rheumatoid factor, unspecified; M25.511 Pain in right shoulder; Z91.81 History of falling; Z79.891 Long term (current) use of opiate analgesic | CPT/HCPCS: 99213 ==

== ENCOUNTER 2021-01-08 13:28 | Outpatient (CLI) | payer MEDICARE, MEDICAID, SELFPAY ==
[2021-01-08] MEDS: sodium chloride 0.9% (100 ml) 100 ML 75 ML IV (13:58)
[2021-01-08] MEDS: acetaminophen 325 mg Tablet 650 MG PO (13:59)
[2021-01-08] MEDS: diphenhydrAMINE 50 mg/mL SDV 1mL 25 MG IVP (14:02)
[2021-01-08 14:38] VITALS: BP 135/70; PULSE 68; RESP 16; TEMP 36.6; O2SAT 93
[2021-01-08 14:56] LABS: Alanine Aminotransferase 40 U/L (0-33); Albumin Level 3.9 g/dL (3.5-5.2); Alkaline Phosphatase 95 IU/L (35-105); Anion Gap 15.9 (5-19); Aspartate Amino Transferase 68 U/L (0-32); Blood Urea Nitrogen 13 mg/dL (8-23); Calcium 8.5 mg/dL (8.5-10.5); Carbon Dioxide 24 mmol/L (22-29); Chloride 102 mmol/L (98-107); Globulin 3.4 g/dL (1.3-4.6); Glomerular Filtration Rate 37.3 mL/min (90-130); Glucose 133 mg/dL (65-115); Osmolality Calculated 288 mOsm/kg (285-295); Potassium 3.9 mmol/L (3.5-5.1); Sodium 138 mmol/L (136-145); Total Bilirubin 0.4 mg/dL (0.15-1.2); Total Protein 7.3 g/dL (6.6-8.7)
[2021-01-08 15:07] VITALS: BP 138/78; PULSE 66; RESP 16; TEMP 36.6; O2SAT 92
[2021-01-08 15:26] LABS: Basophils # 0.1 10^3/uL (0.0-0.1); Basophils % 1.2 %; Eosinophils # 0.3 10^3/uL (0.0-0.8); Eosinophils % 5.6 %; Hematocrit 41.3 % (37.0-47.0); Hemoglobin 12.7 g/dL (11.5-15.3); Lymphocytes # 2.3 10^3/uL (0.8-4.8); Lymphocytes % 38.7 %; Mean Corpuscular HGB Conc 30.8 g/dL (30.0-36.0); Mean Corpuscular Hemoglobin 27.4 pg (28.0-34.0); Mean Platelet Volume 11.9 fL (7.4-10.4); Monocytes # 0.7 10^3/uL (0.2-0.9); Monocytes % 12.3 %; Neutrophils # 2.53 10^3/uL (1.8-7.7); Nucleated Red Blood Cells % 0 %; Platelet Count 226 10^3/cmm (130-400); Red Blood Count 4.64 10^6/uL (4.1-5.3); Red Cell Distribution Width 13.2 % (12.1-15.1)
== END 2021-01-08 13:29 | disposition home or self-care (01) ==
PROVIDERS: Family Provider Nurse Practitioner Family; PCP Nurse Practitioner Family; Visit Provider Internal Medicine Rheumatology
DX: M06.9 Rheumatoid arthritis, unspecified (principal)
CPT/HCPCS: 80053; 85025; 86140; 96365; 96375; J1200; J1602; J2920

== ENCOUNTER → 2021-01-10 12:48 | Outpatient (BNVA) | payer MEDICARE, MEDICAID, SELFPAY | PROVIDERS: Family Provider Nurse Practitioner Family; PCP Nurse Practitioner Family; Visit Provider Internal Medicine | DX: M06.9 Rheumatoid arthritis, unspecified (principal); Z79.899 Other long term (current) drug therapy | CPT/HCPCS: 99214 ==

== ENCOUNTER → 2021-01-11 12:56 | Outpatient (BNVA) | payer MEDICARE, MEDICAID, SELFPAY | PROVIDERS: Family Provider Nurse Practitioner Family; PCP Nurse Practitioner Family; Visit Provider Nurse Practitioner | DX: G89.29 Other chronic pain (principal); M51.17 Intervertebral disc disorders with radiculopathy, lumbosacral region; M54.9 Dorsalgia, unspecified; M17.0 Bilateral primary osteoarthritis of knee; M05.9 Rheumatoid arthritis with rheumatoid factor, unspecified; M54.2 Cervicalgia; M53.3 Sacrococcygeal disorders, not elsewhere classified; M25.511 Pain in right shoulder; M79.7 Fibromyalgia; Z91.81 History of falling; Z79.891 Long term (current) use of opiate analgesic | CPT/HCPCS: 99213; 99214 ==

== ENCOUNTER → 2021-01-29 10:50 | Outpatient (BNVA) | payer MEDICARE, MEDICAID, SELFPAY | PROVIDERS: Family Provider Nurse Practitioner Family; PCP Nurse Practitioner Family; Visit Provider Internal Medicine | DX: M17.0 Bilateral primary osteoarthritis of knee (principal) | CPT/HCPCS: 36415; 80053; 85025 ==

== ENCOUNTER 2021-03-13 08:25 | Outpatient (CLI) | payer MEDICARE, MEDICAID, SELFPAY ==
[2021-03-13 11:30] VITALS: BP 129/75; PULSE 83; RESP 18; TEMP 36; O2SAT 94
[2021-03-13] MEDS: sodium chloride 0.9% 1,000 ML 100 ML IV (12:15)
[2021-03-13] MEDS: acetaminophen 325 mg Tablet 650 MG PO (12:16)
[2021-03-13] MEDS: diphenhydrAMINE 50 mg/mL SDV 1mL 25 MG IVP (12:22)
[2021-03-13 13:09] LABS: C Reactive Protein 8.1 mg/L (0.0-4.9)
[2021-03-13 13:33] VITALS: BP 109/45; PULSE 69; RESP 18; TEMP 36.5; O2SAT 95
== END 2021-03-13 08:26 | disposition home or self-care (01) ==
PROVIDERS: PCP Nurse Practitioner Family; Referring Provider Internal Medicine; Visit Provider Internal Medicine Rheumatology
DX: M06.9 Rheumatoid arthritis, unspecified (principal); M17.0 Bilateral primary osteoarthritis of knee; G89.29 Other chronic pain; M51.17 Intervertebral disc disorders with radiculopathy, lumbosacral region; M54.9 Dorsalgia, unspecified; M54.2 Cervicalgia; M25.511 Pain in right shoulder; M05.9 Rheumatoid arthritis with rheumatoid factor, unspecified; M53.3 Sacrococcygeal disorders, not elsewhere classified; R51.9 Headache, unspecified; Z79.891 Long term (current) use of opiate analgesic
CPT/HCPCS: 36415; 86140; 96365; 96375; 99213; 99214; J1200; J1602; J2920; J7030

== ENCOUNTER → 2021-04-02 08:19 | Outpatient (BNVA) | payer MEDICARE, MEDICAID, SELFPAY | PROVIDERS: PCP Nurse Practitioner Family; Visit Provider Neurological Surgery | DX: M05.9 Rheumatoid arthritis with rheumatoid factor, unspecified (principal); M17.0 Bilateral primary osteoarthritis of knee; Z79.899 Other long term (current) drug therapy; I10 Essential (primary) hypertension | CPT/HCPCS: 80053; 80061; 82043; 84439; 84443; 85025; 85651; 86140 ==

== ENCOUNTER → 2021-04-10 12:43 | Outpatient (BNVA) | payer MEDICARE, MEDICAID, SELFPAY | PROVIDERS: PCP Nurse Practitioner Family; Visit Provider Internal Medicine | DX: M06.9 Rheumatoid arthritis, unspecified (principal); R53.83 Other fatigue; Z79.899 Other long term (current) drug therapy; M51.17 Intervertebral disc disorders with radiculopathy, lumbosacral region; G47.00 Insomnia, unspecified | CPT/HCPCS: 87635; 99214 ==

== ENCOUNTER → 2021-04-11 09:14 | Outpatient (BNVA) | payer MEDICARE, MEDICAID, SELFPAY | PROVIDERS: PCP Nurse Practitioner Family; Visit Provider Internal Medicine | DX: M05.9 Rheumatoid arthritis with rheumatoid factor, unspecified (principal); N17.9 Acute kidney failure, unspecified; R06.00 Dyspnea, unspecified; R53.83 Other fatigue; G89.29 Other chronic pain; M25.511 Pain in right shoulder; M51.17 Intervertebral disc disorders with radiculopathy, lumbosacral region; G47.00 Insomnia, unspecified | CPT/HCPCS: 81003; 82306; 82533; 82607; 82728; 83540; 84481; 87077; 87086; 87184 ==

== ENCOUNTER 2021-04-13 12:17 | Outpatient (CLI) | payer MEDICARE, MEDICAID, SELFPAY ==
--- NOTE | 2021-04-13 12:45 | USCV_ITS ---
Gracy Montemayor Age: 70 Gender: F : 1950 Exam Date: 04/13/2021 12:33 Ordering Phys: Cindi Goldberg MD ([email or web address]) Technologist: Janice Connelly Exam Location: [facility] [place] Indication: sob, BP: / HR: 59 Rhythm: Sinus Technical Quality: Adequate MEASUREMENTS (Male / Female) Normal Values 2D ECHO LV Diastolic Diameter PLAX 4.7 cm 4.2 - 5.9 / 3.9 - 5.3 cm LV Systolic Diameter PLAX 2.6 cm IVS Diastolic Thickness 0.9 cm 0.6 - 1.0 / 0.6 - 0.9 cm IVS Systolic Thickness 1.2 cm LVPW Diastolic Thickness 0.9 cm 0.6 - 1.0 / 0.6 - 0.9 cm LVPW Systolic Thickness 2.0 cm LVOT Diameter 2.1 cm LV Ejection Fraction 2D Teich 76.2 % LV Ejection Fraction MOD 2C 40.3 % LV Ejection Fraction 2C AL 37.0 % LA Diameter 3.9 cm LA Width 3.9 cm LA Height 4.9 cm RA Width 3.5 cm RA Height 3.3 cm Aorta at Sinotubular Diameter 2.8 cm M-MODE LV Diastolic Diameter MM 4.7 cm 4.2 - 5.9 / 3.9 - 5.3 cm LV Systolic Diameter MM 3.4 cm LV Ejection Fraction MM Teich 54.2 % IVS Diastolic Thickness MM 0.8 cm 0.6 - 1.0 / 0.6 - 0.9 cm IVS Systolic Thickness MM 0.9 cm LVPW Diastolic Thickness MM 0.8 cm 0.6 - 1.0 / 0.6 - 0.9 cm LVPW Systolic Thickness MM 1.2 cm Aortic Annulus Diameter 2.6 cm LA Ao Ratio MM 1.7 MV E Point Septal Separation 0.5 cm DOPPLER AV Peak Velocity 201.0 cm/s LVOT Peak Velocity 82.0 cm/s AV Area Cont Eq vti 1.6 cm squared AV Area Cont Eq pk 1.4 cm squared MV Peak Velocity 116.0 cm/s MV Area PHT 3.4 cm squared Mitral E to A Ratio 0.7 MV E' Velocity 37.5 cm/s Mitral E to MV E' Ratio 12.2 Mitral E to LV E' Lateral Ratio 12.2 Mitral E to LV E' Septal Ratio 12.2 TR Peak Velocity 225.5 cm/s TR Peak Gradient 20.3 mmHg TR Mean Velocity 119.4 cm/s TR Mean Gradient 6.4 mmHg TR Velocity Time Integral 35.3 cm Right Atrial Pressure 3.0 mmHg Pulmonary Artery Systolic Pressu 23.3 mmHg PV Peak Velocity 76.0 cm/s RV Acceleration Time 0.1 s RV Ejection Time 0.3 s RV AcT/ET 0.3 FINDINGS Left Ventricle Normal left ventricular cavity size, wall thickness and systolic function. Left ventricular ejection fraction is estimated at 55- 60 %. No regional wall motion abnormalities. Grade I diastolic dysfunction (abnormal relaxation filling pattern), normal to mildly elevated filling pressures. Right Ventricle Normal right ventricular size and systolic function. Right ventricular systolic pressure 32 mmHg. Right Atrium Normal right atrial size. Left Atrium Mildly increased left atrial size. Mitral Valve Mildly thickened mitral valve. Mild bowing of bilateral mitral valve leaflets. No mitral valve stenosis. Mild mitral valve regurgitation. Aortic Valve Mildly thickened trileaflet aortic valve. Mild aortic valve stenosis, mean gradient 7.2 mmHg, AWILDA 1.6 cm squared. Trace aortic valve regurgitation. Tricuspid Valve Structurally normal tricuspid valve. No tricuspid valve stenosis. Mild to moderate tricuspid valve regurgitation. Pulmonic Valve No pulmonary valve stenosis. No pulmonary valve stenosis. Trace pulmonary valve regurgitation. Pericardium No pericardial effusion. Aorta Normal-sized aortic root. Normal-sized inferior vena cava. CONCLUSIONS 1. This is a technically difficult study. 2. Normal left ventricular cavity size, wall thickness and systolic function. Left ventricular ejection fraction is estimated at 55-60 %. No regional wall motion abnormalities. Grade I diastolic dysfunction (abnormal relaxation filling pattern), normal to mildly elevated filling pressures. 3. Normal right ventricular size and systolic function. 4. Pulmonary artery pressure estimated at 32 mmHg. 5. No significant change when compared to previous echocardiogram dated 04/23/2018. Cindi Goldberg MD (Electronically Signed) Final Date: 17 April 2021 18:03 S
== END 2021-04-13 12:18 | disposition home or self-care (01) ==
PROVIDERS: PCP Nurse Practitioner Family; Visit Provider Internal Medicine Cardiovascular Disease
DX: R06.00 Dyspnea, unspecified (principal)
CPT/HCPCS: 93306

== ENCOUNTER 2021-04-16 13:30 | Outpatient (CLI) | payer MEDICARE, MEDICAID, SELFPAY ==
--- NOTE | 2021-04-16 13:52 | PFTS_ITS ---
Date of Study:04/16/21 Date of Dictation: MECHANICS: Forced vital capacity (FVC) is reduced. Forced expiratory volume in one second (FEV1) is reduced FEV1/FVC is normal. FLOW VOLUME LOOP: Normal. LUNG VOLUMES: Not measured DIFFUSING CAPACITY FOR CARBON MONOXIDE: Not measured INTERPRETATION: The postbronchodilator spirometry is consistent with moderate restriction. There is no significant postbronchodilator response. MTDD
== END 2021-04-16 13:31 | disposition home or self-care (01) ==
LOC: RT 13:33
PROVIDERS: PCP Nurse Practitioner Family; Visit Provider Nurse Practitioner Family
DX: R06.02 Shortness of breath (principal)
CPT/HCPCS: 94060; J7611

== ENCOUNTER 2021-05-08 12:43 | Outpatient (CLI) | payer MEDICARE, MEDICAID, SELFPAY ==
[2021-05-08 13:00] VITALS: BP 133/73; PULSE 71; RESP 18; TEMP 36.6; O2SAT 94
[2021-05-08] MEDS: acetaminophen 325 mg Tablet 650 MG PO (13:30)
[2021-05-08] MEDS: diphenhydrAMINE 50 mg/mL SDV 1mL 25 MG IVP (13:30)
[2021-05-08] MEDS: sodium chloride 0.9% 250 ML 75 ML IV (13:30)
[2021-05-08 13:51] LABS: Basophils # 0.1 10^3/uL (0.0-0.1); Basophils % 0.6 %; Eosinophils # 0.4 10^3/uL (0.0-0.8); Eosinophils % 5.5 %; Hematocrit 39.3 % (37.0-47.0); Hemoglobin 12.2 g/dL (11.5-15.3); Lymphocytes # 3.7 10^3/uL (0.8-4.8); Lymphocytes % 46.9 %; Mean Corpuscular Hemoglobin 27.9 pg (28.0-34.0); Mean Corpuscular Volume 89.7 fl (81-99); Mean Platelet Volume 11.3 fL (7.4-10.4); Monocytes # 0.8 10^3/uL (0.2-0.9); Monocytes % 9.9 %; Neutrophils # 2.92 10^3/uL (1.8-7.7); Neutrophils % 36.8 %; Nucleated Red Blood Cells % 0 %; Platelet Count 252 10^3/cmm (130-400); Red Blood Count 4.38 10^6/uL (4.1-5.3); Red Cell Distribution Width 15.1 % (12.1-15.1); White Blood Count 7.9 10^3/uL (4.0-10.0)
[2021-05-08 14:20] LABS: Alanine Aminotransferase 22 U/L (0-33); Albumin Level 3.7 g/dL (3.5-5.2); Alkaline Phosphatase 89 IU/L (35-105); Aspartate Amino Transferase 50 U/L (0-32); Blood Urea Nitrogen 15 mg/dL (8-23); C Reactive Protein 8.7 mg/L (0.0-4.9); Calcium 8.6 mg/dL (8.5-10.5); Carbon Dioxide 25 mmol/L (22-29); Chloride 104 mmol/L (98-107); Globulin 3.7 g/dL (1.3-4.6); Glomerular Filtration Rate 37.3 mL/min (90-130); Glucose 89 mg/dL (65-115); Osmolality Calculated 288 mOsm/kg (285-295); Sodium 139 mmol/L (136-145); Total Bilirubin 0.5 mg/dL (0.15-1.2); Total Protein 7.4 g/dL (6.6-8.7)
[2021-05-08 14:23] VITALS: BP 118/75; PULSE 67; RESP 18; TEMP 36.6; O2SAT 93
[2021-05-08 14:27] LABS: Anion Gap 14.3 (5-19); Potassium 4.3 mmol/L (3.5-5.1)
== END 2021-05-08 12:44 | disposition home or self-care (01) ==
PROVIDERS: Internal Medicine; PCP Nurse Practitioner Family; Visit Provider Internal Medicine Rheumatology
DX: M06.9 Rheumatoid arthritis, unspecified (principal)
CPT/HCPCS: 80053; 85025; 86140; 96365; 96375; J1200; J1602; J2920; J7050

== ENCOUNTER → 2021-05-09 13:32 | Outpatient (BNVA) | payer MEDICARE, MEDICAID, SELFPAY | PROVIDERS: PCP Nurse Practitioner Family; Visit Provider Nurse Practitioner | DX: G89.29 Other chronic pain (principal); M51.17 Intervertebral disc disorders with radiculopathy, lumbosacral region; M17.0 Bilateral primary osteoarthritis of knee; M54.2 Cervicalgia; M25.511 Pain in right shoulder; M53.3 Sacrococcygeal disorders, not elsewhere classified; M79.7 Fibromyalgia; M05.9 Rheumatoid arthritis with rheumatoid factor, unspecified; Z79.891 Long term (current) use of opiate analgesic | CPT/HCPCS: 99214 ==

== ENCOUNTER → 2021-05-15 14:19 | Outpatient (BNVA) | payer MEDICARE, MEDICAID, SELFPAY | PROVIDERS: PCP Nurse Practitioner Family; Visit Provider Anesthesiology Pain Medicine | DX: G89.29 Other chronic pain (principal); M54.5 Low back pain; M54.2 Cervicalgia; Z79.891 Long term (current) use of opiate analgesic | CPT/HCPCS: 62323; J1040; J3490 ==

== ENCOUNTER → 2021-05-23 13:11 | Outpatient (BNVA) | payer MEDICARE, MEDICAID, SELFPAY | PROVIDERS: PCP Nurse Practitioner Family; Visit Provider Urology | DX: N30.20 Other chronic cystitis without hematuria (principal) | CPT/HCPCS: 81003; 87077; 87086; 87184 ==

== ENCOUNTER → 2021-06-07 09:21 | Outpatient (BNVA) | payer MEDICARE, MEDICAID, SELFPAY | PROVIDERS: PCP Nurse Practitioner Family; Visit Provider Specialist | DX: M17.31 Unilateral post-traumatic osteoarthritis, right knee (principal); M25.551 Pain in right hip | CPT/HCPCS: 73560; 73565 ==

== ENCOUNTER 2021-06-28 13:00 | Outpatient (CLI) | payer MEDICARE, MEDICAID, SELFPAY ==
[2021-06-28 13:15] VITALS: BP 131/63; PULSE 74; RESP 18; TEMP 36.3; O2SAT 93
[2021-06-28] MEDS: acetaminophen 325 mg Tablet 650 MG PO (13:49)
[2021-06-28] MEDS: sodium chloride 0.9% 250 ML 75 ML IV (13:51)
[2021-06-28] MEDS: diphenhydrAMINE 50 mg/mL SDV 1mL 25 MG IV (13:52)
[2021-06-28 14:00] LABS: Basophils # 0.1 10^3/uL (0.0-0.1); Basophils % 0.9 %; Eosinophils # 0.4 10^3/uL (0.0-0.8); Eosinophils % 5.7 %; Hematocrit 45.2 % (37.0-47.0); Hemoglobin 14.1 g/dL (11.5-15.3); Lymphocytes # 3.7 10^3/uL (0.8-4.8); Lymphocytes % 52.8 %; Mean Corpuscular HGB Conc 31.2 g/dL (30.0-36.0); Mean Corpuscular Hemoglobin 28.1 pg (28.0-34.0); Mean Corpuscular Volume 90.2 fl (81-99); Mean Platelet Volume 11.4 fL (7.4-10.4); Monocytes # 0.7 10^3/uL (0.2-0.9); Monocytes % 9.6 %; Neutrophils # 2.17 10^3/uL (1.8-7.7); Neutrophils % 30.9 %; Nucleated Red Blood Cells % 0 %; Platelet Count 293 10^3/cmm (130-400); Red Blood Count 5.01 10^6/uL (4.1-5.3); Red Cell Distribution Width 14.2 % (12.1-15.1)
[2021-06-28 14:53] VITALS: BP 115/74; PULSE 73; RESP 18; TEMP 36.6; O2SAT 97
[2021-06-28 15:50] LABS: Alanine Aminotransferase 19 U/L (0-33); Albumin Level 3.3 g/dL (3.5-5.2); Alkaline Phosphatase 75 IU/L (35-105); Blood Urea Nitrogen 15 mg/dL (8-23); C Reactive Protein 9.6 mg/L (0.0-4.9); Carbon Dioxide 25 mmol/L (22-29); Chloride 100 mmol/L (98-107); Globulin 4.3 g/dL (1.3-4.6); Glomerular Filtration Rate 44.5 mL/min (90-130); Glucose 106 mg/dL (65-115); Osmolality Calculated 285 mOsm/kg (285-295); Sodium 137 mmol/L (136-145); Total Bilirubin 0.5 mg/dL (0.15-1.2); Total Protein 7.6 g/dL (6.6-8.7)
[2021-06-28 15:52] LABS: Anion Gap 15.6 (5-19); Aspartate Amino Transferase 32 U/L (0-32); Potassium 3.6 mmol/L (3.5-5.1)
== END 2021-06-28 13:01 | disposition home or self-care (01) ==
PROVIDERS: PCP Nurse Practitioner Family; Visit Provider Internal Medicine
DX: M06.9 Rheumatoid arthritis, unspecified (principal)
CPT/HCPCS: 80053; 85025; 86140; 96365; 96375; J1200; J1602; J2920; J7050

== ENCOUNTER → 2021-07-04 13:12 | Outpatient (BNVA) | payer MEDICARE, MEDICAID, SELFPAY | PROVIDERS: PCP Nurse Practitioner Family; Visit Provider Anesthesiology | DX: G89.29 Other chronic pain (principal); M51.17 Intervertebral disc disorders with radiculopathy, lumbosacral region; M53.3 Sacrococcygeal disorders, not elsewhere classified; M54.2 Cervicalgia; Z79.899 Other long term (current) drug therapy; Z79.891 Long term (current) use of opiate analgesic | CPT/HCPCS: 99214 ==

== ENCOUNTER → 2021-07-31 12:56 | Outpatient (BNVA) | payer MEDICARE, MEDICAID, SELFPAY | PROVIDERS: PCP Nurse Practitioner Family; Visit Provider Anesthesiology | DX: G89.29 Other chronic pain (principal); M54.50 Low back pain, unspecified; M54.2 Cervicalgia; M17.0 Bilateral primary osteoarthritis of knee; Z79.899 Other long term (current) drug therapy; Z79.891 Long term (current) use of opiate analgesic | CPT/HCPCS: 99214 ==

== ENCOUNTER 2021-08-03 07:08 | Emergency (ER) | payer MEDICARE, MEDICAID, SELFPAY ==
[2021-08-03] VITALS (7 sets, daily range): BP systolic 132–166; BP diastolic 67–102; PULSE 72–88; RESP 17–20; TEMP 36.9; O2SAT 90–97; BMI 36.6
--- NOTE | 2021-08-03 07:26 | ECG_ITS ---
[facility] Test Date: 2021-08-03 Pat Name: Gracy Montemayor Department: Room: Gender: Female Chapter Relations Administrator: : 1950 Requested By: Topher Richardson Order Number: [id number] Shalonda MD: Emanuel Ziegler M.D. Measurements Intervals [place] Rate: 74 P: 25 TN: 152 QRS: -54 QRSD: 124 T: 31 QT: 410 QTc: 456 Interpretive Statements SINUS RHYTHM LEFT ANTERIOR FASCICULAR BLOCK [QRS AXIS <= -45, QR IN I, RS IN II] NONSPECIFIC ST ELEVATION [0.05+ mV ST ELEVATION] Compared to ECG 12/30/2019 02:56:42 ST (T wave) deviation now present Myocardial infarct finding no longer present Electronically Signed On 08-03-2021 19:46:02 TOURIST INFORMATION OFFICER by Emanuel Ziegler M.D. [id number]
[2021-08-03] MEDS: promethazine 25 mg/mL SDV 1 mL IM (08:12)
[2021-08-03] MEDS: sodium chloride 0.9% 1,000 ML 999 ML IV ×2 (08:14→12:06)
--- NOTE | 2021-08-03 08:15 | W.ED.ABDPA2 ---
HPI - Abdominal Pain General: Chief Complaint: Abdominal Pain Stated Complaint: dry heaves and vomiting Time Seen by Provider: 08/03/21 07:13 History of Present Illness: HPI narrative: 70-year-old female presents to the emergency room with nausea and vomiting. She states she has been on antibiotics for the last month for interstitial cystitis/acute cystitis. She usually sees Dr. Thompson her antibiotics were changed within the last week but she does not know the name of the medication she is currently on. She is on methenamine as well. She has had intractable nausea and vomiting and lower abdominal pain for an entire week per her report. She is having dry heaving here in the emergency room. She denies any medication melena hematemesis or coffee-ground emesis. No shortness of breath no fever sweats or chills. Denies any flank pain. MD elicited complaint: abdominal pain Pertinent past history: past UTI Onset (ago): week(s) (1) Pain Consistency: intermittent Location: Suprapubic Severity: moderate Quality: cramping Radiation: none Migration to: no migration Exacerbating factors: vomiting Relieving factors: nothing Associated Symptoms: Reports bloating, GI cramping, dysuria, nausea, poor appetite and vomiting; Denies anorexia, belching, change in bowel habits, change in stool character, chills, coffee ground emesis, constipation, diarrhea, dyspepsia, excessive flatus, fever(s), heartburn, hematochezia, hematuria, hematemesis, fecal incontinence, loose stools, melena and syncope Review of Systems Const: Denies: fever(s) or chills ENMT: Denies: throat pain, ear or mastoid pain, nasal discharge or nasal congestion Card: Denies: syncope Resp: Denies: dyspnea, productive cough or non-productive cough GI: Reports: nausea, vomiting, bloating and GI cramping; Denies: hematemesis, coffee ground emesis, heartburn, diarrhea, constipation, belching, excessive flatus, fecal incontinence, change in bowel habits, change in stool character, hematochezia or melena : Reports: dysuria; Denies: hematuria Skin/Breast: Denies: rash or pruritus PFS ED PFSH: Medical History Bilateral primary osteoarthritis of knee Bowel perforation CAD (coronary artery disease), [place] coronary artery Chronic constipation Chronic cystitis Chronic neck and back pain Chronic right shoulder pain Dyslipidemia Encounter for long-term opiate analgesic use Fatigue Fibromyalgia High risk medication use Hypertension Immunization counseling Lichen sclerosus (~2013) Localized osteoarthritis of right knee Long-term use of high-risk medication Neck pain PVC (premature ventricular contraction) Recurrent UTI Rheumatoid arthritis, unspecified Risk for falls Sciatic radiculitis Seropositive rheumatoid arthritis SI (sacroiliac) joint dysfunction Vulvar intraepithelial neoplasia III Surgical History H/O local excision of skin lesion (03/09/19) Dx: Vulvar lesions. [place] 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 Hadley. S/P hysterectomy (~1975) With BSO S/P knee surgery (~2012) Right knee. Dr. Royal Status post arterial stent (09/05/19) only 1 stent [place] [facility] Family History Brother Hyperlipidemia Grandmother Breast cancer Maternal Sister Diabetes Family/Other CAD (coronary artery disease) Father's side of the family Mother , at age 72 Lung disease Father , at age 45 CAD (coronary artery disease) Social History Smoking and tobacco status: never smoked Second hand smoke exposure: No Alcohol intake: never Marital status: Current occupational status: retired and disabled History of recent travel: No Additional social history: well- balanced Physical Exam Const: COMMON NORMALS: no acute distress GENERAL APPEARANCE: cooperative and comfortable ORIENTATION/CONSCIOUSNESS: Yes awake, Yes oriented to person, Yes oriented to place and Yes oriented to time HENMT: COMMON NORMALS: normocephalic, atraumatic and hearing grossly normal bilaterally HEAD & SCALP: normocephalic and atraumatic Eye: COMMON NORMALS: Equal, round and reactive pupils present, EOMs intact bilaterally, conjunctivae normal and no scleral icterus CONJUNCTIVA: Yes conjunctivae normal PUPIL: Yes Equal, round and reactive pupils present Neck/C-Spine: COMMON NORMALS: full ROM, no lymphadenopathy, supple and no JVD Lymph: LYMPHATIC: no lymphadenopathy noted and no lymphedema noted Resp: COMMON NORMALS: normal respiratory effort, No retractions, No use of accessory muscles and clear to auscultation bilaterally AUSCULTATION: clear to auscultation bilaterally Cardio: COMMON NORMALS: no JVD, regular rate, regular rhythm and No murmurs present (Cardio) RATE: regular rate RHYTHM: regular rhythm GI: COMMON NORMALS: Soft to palpation and No hepatosplenomegaly present AUSCULTATION: Yes normoactive bowel sounds PALPATION: Yes Soft to palpation, No Tenderness to palpation present (GI), No Guarding due to palpation present (GI) and Yes No hepatosplenomegaly present Extremity: COMMON NORMALS: normal to inspection, capillary refill normal, no clubbing, cyanosis or edema, no calf tenderness and no pedal edema Neuro: SENSORIUM/ORIENTATION: Yes oriented to person, Yes oriented to place and Yes oriented to time Skin: COMMON NORMALS: no rashes or lesions noted GENERAL SKIN EXAM: no rashes or lesions noted Course Vital Signs: Vital signs: Vital Signs Temperature 98.5 F 08/03/21 07:15 Pulse Rate 75 08/03/21 10:19 Respiratory Rate 18 08/03/21 13:50 Blood Pressure 152/78 08/03/21 10:19 Pulse Oximetry 95 08/03/21 10:19 MDM - Abdominal Pain MDM Narrative: Medical decision making narrative: Persistent nausea and vomiting. She is improved when she first arrived. She tells me she is on an antibiotic but I do not have any on her list. She has been on antibiotics by her report for an entire month. She not having any diarrhea. CT was done given her persistent nausea and vomiting was unremarkable the remainder of her labs are unremarkable. I did talk to Dr. Thompson he is fine with her stopping all antibiotics at this point. Asked her to stop all antibiotics clear liquid diet use antiemetics as needed. Return if has persistent problems. Lab Data: Labs: Lab Results 08/03/21 08/03/21 08/03/21 08:35 08:35 09:55 WBC 7.4 10^3/uL 10^3/ uL (4.0-10.0) RBC 4.21 10^6/uL 10^6 /uL (4.1-5.3) Hgb 11.8 g/dL g/dL (11.5-15.3) Hct 36.9 % L % (37.0-47.0) MCV 87.6 fl fl (81-99) MCH 28.0 pg pg (28.0-34.0) MCHC 32.0 g/dL g/dL (30.0-36.0) RDW 13.6 % % (12.1-15.1) Plt Count 242 10^3/cmm 10^3 /cmm (130-400) MPV 11.6 fL H fL (7.4-10.4) Neut % (Auto) 51.7 % % Lymph % (Auto) 36.2 % % [place] % (Auto) 9.8 % % Eos % (Auto) 1.2 % % Baso % (Auto) 0.8 % % Neut # (Auto) 3.82 10^3/uL 10^3 /uL (1.8-7.7) Lymph # (Auto) 2.7 10^3/uL 10^3/ uL (0.8-4.8) [place] # (Auto) 0.7 10^3/uL 10^3/ uL (0.2-0.9) Eos # (Auto) 0.1 10^3/uL 10^3/ uL (0.0-0.8) Baso # (Auto) 0.1 10^3/uL 10^3/ uL (0.0-0.1) Nucleated RBC % (a uto) 0 % % Nucleated RBCs # 0.0 /100WBC /100W BC Sodium 141 mmol/L mmol/L (136-145) Potassium 3.2 mmol/L L mmol /L (3.5-5.1) Chloride 103 mmol/L mmol/L (98-107) Carbon Dioxide 23 mmol/L mmol/L (22-29) Anion Gap 18.2 (5-19) BUN 16 mg/dL mg/dL (8-23) Creatinine 1.3 mg/dL H mg/dL (0.5-0.9) GFR Calculation 40.6 mL/min L mL/ min (90-130) Glucose 100 mg/dL mg/dL (65-115) Calculated Osmolal ity 293 mOsm/kg mOsm/ kg (285-295) Calcium 9.1 mg/dL mg/dL (8.5-10.5) Total Bilirubin 0.8 mg/dL mg/dL (0.15-1.2) AST 55 U/L H U/L (0-32) ALT 26 U/L U/L (0-33) Alkaline Phosphata se 69 IU/L IU/L (35-105) Total Protein 7.4 g/dL g/dL (6.6-8.7) Albumin 3.3 g/dL L g/dL (3.5-5.2) Globulin 4.1 g/dL g/dL (1.3-4.6) Lipase 11 U/L L U/L (13-60) Urine Color Yellow (Yellow) Urine Appearance Clear (CLEAR) Urine pH 7 (5-7) Ur Specific Gravit y 1.005 (1.005-1.030) Urine Protein Neg (Negative) Urine Glucose (UA) Norm (Normal) Urine Ketones Negative (Negative) Urine Blood Neg (Negative) Urine Nitrate Negative (Negative) Urine Bilirubin Neg (Negative) Urine Urobilinogen Norm mg/dL mg/dL (Negative) Ur Leukocyte Holly ase Negative (Negative) Discharge Plan Discharge Patient Disposition: Home Clinical Impression: Nausea and vomiting, Medication side effect Condition: Stable Prescriptions: New promethazine 25 mg tablet 25 mg PO Q6H PRN (Reason: nausea and vomiting) Qty: 20 RF: 0 No Action oxycodone 15 mg tablet 15 mg PO QID PRN (Reason: pain) 30 Days Qty: 120 RF: 0 oxycodone 15 mg tablet 15 mg PO QID PRN (Reason: pain) 30 Days Qty: 120 RF: 0 pantoprazole 40 mg tablet,delayed release (DR/EC) 40 mg PO DAILY RF: 0 aspirin 81 mg tablet,delayed release (DR/EC) 81 mg PO DAILY RF: 0 cyanocobalamin (vitamin B-12) [Vitamin B-12] 500 mcg tablet 500 mcg PO DAILY RF: 0 mirtazapine 7.5 mg tablet 7.5 mg PO DAILY RF: 0 indapamide 1.25 mg tablet 1.25 mg PO QAM RF: 0 nitroglycerin 0.4 mg tablet, sublingual 0.4 mg SUBLINGUAL .once up to 3 pills Qty: 25 RF: 11 metoprolol tartrate 25 mg tablet 12.5 mg PO BID Qty: 90 RF: 3 (DME) Ultra-Light Rollator Misc See Rx Instructions .ROUTE .MEDSUPPLY Qty: 1 RF: 0 pregabalin [Lyrica] 50 mg capsule 50 mg PO TID 30 Days Qty: 90 RF: 0 tizanidine 4 mg tablet 4 mg PO TID PRN (Reason: muscle spasticity) 30 Days Qty: 90 RF: 0 Simponi ARIA 12.5 mg/mL solution See Rx Instructions IVP .every 8 weeks RF: 0 spironolactone 25 mg tablet 12.5 mg PO DAILY Qty: 60 RF: 1 clopidogrel [Plavix] 75 mg tablet 75 mg PO DAILY Qty: 90 RF: 3 cholecalciferol (vitamin D3) 1,250 mcg (50,000 unit) capsule 50,000 unit PO .qweek Qty: 14 RF: 0 methenamine hippurate 1 gram tablet 1 g PO BID Qty: 60 RF: 12 Xiidra 5 % dropperette See Rx Instructions .ROUTE .COMPLEX RF: 0 Discharge Orders: Discharge ED (Routine); Ordered 08/03/21 Ordered By: Topher Madison Referrals: Lien Rangel, CATH LAB [Primary Care Provider] - Discharge Diet: Clear Liquid Discharge Activity: Increase activity as tolerated Patient Instructions: Opioid Safety Activity Restrictions/Additional Instructions: Stop all antibiotics. Follow-up with Dr. Thompson's office. Coding Level of Care Code ED Principal Bioinformatics Specialist for Bobby[employer] Fwd Exam Comprehensive
[2021-08-03 09:06] LABS: Basophils # 0.1 10^3/uL (0.0-0.1); Basophils % 0.8 %; Eosinophils # 0.1 10^3/uL (0.0-0.8); Eosinophils % 1.2 %; Hematocrit 36.9 % (37.0-47.0); Hemoglobin 11.8 g/dL (11.5-15.3); Lymphocytes # 2.7 10^3/uL (0.8-4.8); Lymphocytes % 36.2 %; Mean Corpuscular Volume 87.6 fl (81-99); Mean Platelet Volume 11.6 fL (7.4-10.4); Monocytes # 0.7 10^3/uL (0.2-0.9); Monocytes % 9.8 %; Neutrophils # 3.82 10^3/uL (1.8-7.7); Neutrophils % 51.7 %; Nucleated Red Blood Cells % 0 %; Platelet Count 242 10^3/cmm (130-400); Red Blood Count 4.21 10^6/uL (4.1-5.3); Red Cell Distribution Width 13.6 % (12.1-15.1); White Blood Count 7.4 10^3/uL (4.0-10.0)
[2021-08-03 09:29] LABS: Alanine Aminotransferase 26 U/L (0-33); Albumin Level 3.3 g/dL (3.5-5.2); Alkaline Phosphatase 69 IU/L (35-105); Anion Gap 18.2 (5-19); Aspartate Amino Transferase 55 U/L (0-32); Blood Urea Nitrogen 16 mg/dL (8-23); Calcium 9.1 mg/dL (8.5-10.5); Carbon Dioxide 23 mmol/L (22-29); Chloride 103 mmol/L (98-107); Globulin 4.1 g/dL (1.3-4.6); Glomerular Filtration Rate 40.6 mL/min (90-130); Glucose 100 mg/dL (65-115); Lipase 11 U/L (13-60); Osmolality Calculated 293 mOsm/kg (285-295); Potassium 3.2 mmol/L (3.5-5.1); Sodium 141 mmol/L (136-145); Total Bilirubin 0.8 mg/dL (0.15-1.2); Total Protein 7.4 g/dL (6.6-8.7)
--- NOTE | 2021-08-03 09:51 | CT_ITS ---
WS: [id number] CT ABDOMEN PELVIS TECHNIQUE: Contrast-enhanced CT of the abdomen and pelvis with coronal and sagittal reformatted image s. CLINICAL INFORMATION: abd pain COMPARISON: 12/31/2019 and 11/22/2018 DLP: 1839.[address] scans at [facility] use at least one of these dose optimization techniques: automated e xposure control; mA and/or kV adjustment per patient size (includes targeted exams where dose is matc hed to clinical indication); or iterative reconstruction. FINDINGS: Prior cholecystectomy. Prior hysterectomy.Diffuse fatty infiltration liver. Hepatomegaly. Normal spl een. Small esophageal hiatal hernia. Lung bases are well aerated. Adrenal glands are normal. Normal r enal parenchymal enhancement. Bilateral renal cortical atrophy. Fatty atrophy of the pancreas. Vascul ar calcification. Normal caliber abdominal aorta. Physiologic bile duct dilatation postcholecystectom y.Prior right periumbilical abdominal wall hernia repair with a small amount of postoperative soft ti ssue thickening and induration unchanged since 2019 Normal sigmoid colon. No evidence of high-grade small or large bowel obstruction. No free fluid in th e pelvis. Normal bladder. Pelvic phleboliths. No periaortic or pelvic lymphadenopathy. No inguinal ly mphadenopathy. Disc space narrowing worse at L2-3 with vacuum disc phenomenon. Slight anterolisthesis L5 on S1. Mild lumbar curve. CT/CT abdomen pelvis w con* [id number] IMPRESSION: 1. Prior cholecystectomy and hysterectomy. 2. Hepatosplenomegaly diffuse fatty infiltration of the liver. 3. Normal caliber abdominal aorta. 4. No evidence of small or large bowel obstruction. Normal sigmoid colon. 5. Prior right periumbilical abdominal wall hernia repair with a small amount of postoperative soft tissue thickening and induration unchanged since 2019. No herniated bowel. 6. Slight grade 1 anterolisthesis L5 on S1. 7. No other significant findings or changes from previous.
--- NOTE | 2021-08-03 09:56 | PC.NURSE ---
ENTERED ROOM PPE DAWNED IN AND OUT CATHETER PERFORMED AFTER VERBAL CONSENT GIVEN FROM PT. WITNESSED BY EVARISTO SCALES RN STUDENT. PT DENIES ANY FURTHER NEEDS.
[2021-08-03 10:01] LABS: Add Urine Microscopic? NO; Charge for UA Resulting for Rev
[2021-08-03 10:08] LABS: Bilirubin Urine Neg (Negative); Blood Urine Neg (Negative); Glucose Urine UA Norm (Normal); Ketones Urine Negative (Negative); Leukocyte Esterase Urine Negative (Negative); Nitrate Urine Negative (Negative); Protein Urine Neg (Negative); Specific Gravity, Urine 1.005 (1.005-1.030); Urine Appearance Clear (CLEAR); Urine Color Yellow (Yellow); Urobilinogen Urine Norm (Negative); pH Urine 7 (5-7)
[2021-08-03] MEDS: morphine 4 mg/mL SDV 1 mL IVP ×2 (10:17→13:50)
[2021-08-03] MEDS: haloperidol inj 5 mg/mL INJ 1 mL 2.5 MG IVP (11:15)
[2021-08-03] MEDS: LORazepam 2 mg/mL INJ 1 mL 1 MG IVP (11:16)
[2021-08-03] MEDS: LORazepam 2 mg/mL INJ 1 mL IVP (13:57)
== END 2021-08-03 14:55 | disposition home or self-care (01) ==
PROVIDERS: Emergency Provider Family Medicine; PCP Nurse Practitioner Family
DX: R11.2 Nausea with vomiting, unspecified (principal); T50.905A Adverse effect of unspecified drugs, medicaments and biological substances, initial encounter; Z79.82 Long term (current) use of aspirin; Z79.02 Long term (current) use of antithrombotics/antiplatelets; I25.10 Atherosclerotic heart disease of native coronary artery without angina pectoris; E78.5 Hyperlipidemia, unspecified; I10 Essential (primary) hypertension
CPT/HCPCS: 74177; 80053; 81003; 83690; 85025; 93005; 96361; 96372; 96374; 96375; 96376; 99284; J1630; J2060; J2270; J2550; J7030

== ENCOUNTER 2021-08-20 12:45 | Outpatient (CLI) | payer MEDICARE, MEDICAID, SELFPAY ==
[2021-08-20 13:00] VITALS: BP 132/85; PULSE 83; RESP 18; TEMP 36.5; O2SAT 92
[2021-08-20] MEDS: acetaminophen 325 mg Tablet 650 MG PO (13:59)
[2021-08-20] MEDS: sodium chloride 0.9% 250 ML 50 ML IV (13:59)
[2021-08-20] MEDS: diphenhydrAMINE 50 mg/mL SDV 1mL 25 MG IV (14:01)
[2021-08-20 14:52] VITALS: BP 115/79; PULSE 83; RESP 18; TEMP 36.9; O2SAT 96
== END 2021-08-20 12:46 | disposition home or self-care (01) ==
PROVIDERS: PCP Nurse Practitioner Family; Referring Provider Internal Medicine; Visit Provider Internal Medicine
DX: M06.9 Rheumatoid arthritis, unspecified (principal)
CPT/HCPCS: 96365; 96375; J1200; J1602; J2920; J7050

== ENCOUNTER → 2021-10-04 12:40 | Outpatient (BNVA) | payer MEDICARE, MEDICAID, SELFPAY | PROVIDERS: PCP Nurse Practitioner Family; Visit Provider Anesthesiology | DX: G89.29 Other chronic pain (principal); M51.17 Intervertebral disc disorders with radiculopathy, lumbosacral region; M54.2 Cervicalgia; M17.0 Bilateral primary osteoarthritis of knee; M53.3 Sacrococcygeal disorders, not elsewhere classified; Z79.891 Long term (current) use of opiate analgesic; Z79.899 Other long term (current) drug therapy | CPT/HCPCS: 99214 ==

== ENCOUNTER 2021-10-15 11:27 | Outpatient (CLI) | payer MEDICARE, MEDICAID, SELFPAY ==
[2021-10-15 11:48] LABS: Basophils # 0.1 10^3/uL (0.0-0.1); Basophils % 0.6 %; Eosinophils # 0.3 10^3/uL (0.0-0.8); Eosinophils % 2.9 %; Hematocrit 37.1 % (37.0-47.0); Hemoglobin 12.3 g/dL (11.5-15.3); Mean Corpuscular HGB Conc 33.2 g/dL (30.0-36.0); Mean Corpuscular Hemoglobin 29.2 pg (28.0-34.0); Mean Corpuscular Volume 88.1 fl (81-99); Mean Platelet Volume 12.7 fL (7.4-10.4); Monocytes # 0.9 10^3/uL (0.2-0.9); Monocytes % 8.2 %; Neutrophils # 6.86 10^3/uL (1.8-7.7); Neutrophils % 60.9 %; Nucleated Red Blood Cells % 0 %; Platelet Count 251 10^3/cmm (130-400); Red Blood Count 4.21 10^6/uL (4.1-5.3); Red Cell Distribution Width 16.9 % (12.1-15.1); White Blood Count 11.3 10^3/uL (4.0-10.0)
[2021-10-15 12:19] LABS: Anion Gap 20.5 (5-19); Blood Urea Nitrogen 13 mg/dL (8-23); Calcium 9.1 mg/dL (8.5-10.5); Carbon Dioxide 21 mmol/L (22-29); Chloride 100 mmol/L (98-107); Glomerular Filtration Rate 49.1 mL/min (90-130); Glucose 104 mg/dL (65-115); Osmolality Calculated 286 mOsm/kg (285-295); Potassium 3.5 mmol/L (3.5-5.1); Sodium 138 mmol/L (136-145)
== END 2021-10-15 11:28 | disposition home or self-care (01) ==
LOC: LAB 11:30
PROVIDERS: PCP Nurse Practitioner Family; Visit Provider Nurse Practitioner Family
DX: N17.9 Acute kidney failure, unspecified (principal)
CPT/HCPCS: 80048; 85025

== ENCOUNTER 2021-11-05 12:57 | Outpatient (CLI) | payer MEDICARE, MEDICAID, SELFPAY ==
[2021-11-05 13:57] LABS: Basophils # 0.1 10^3/uL (0.0-0.1); Basophils % 0.7 %; Eosinophils # 0.1 10^3/uL (0.0-0.8); Eosinophils % 1.3 %; Hematocrit 40.2 % (37.0-47.0); Hemoglobin 12.6 g/dL (11.5-15.3); Lymphocytes # 2.2 10^3/uL (0.8-4.8); Lymphocytes % 31.5 %; Mean Corpuscular HGB Conc 31.3 g/dL (30.0-36.0); Mean Corpuscular Hemoglobin 29.6 pg (28.0-34.0); Mean Corpuscular Volume 94.6 fl (81-99); Mean Platelet Volume 11.8 fL (7.4-10.4); Monocytes # 0.6 10^3/uL (0.2-0.9); Monocytes % 8.3 %; Neutrophils # 4.07 10^3/uL (1.8-7.7); Neutrophils % 58.1 %; Nucleated Red Blood Cells % 0 %; Platelet Count 305 10^3/cmm (130-400); Red Blood Count 4.25 10^6/uL (4.1-5.3); Red Cell Distribution Width 18.9 % (12.1-15.1)
[2021-11-05 14:22] LABS: Alanine Aminotransferase 28 U/L (0-33); Alkaline Phosphatase 168 IU/L (35-105); Blood Urea Nitrogen 10 mg/dL (8-23); C Reactive Protein 20.2 mg/L (0.0-4.9); Calcium 8.4 mg/dL (8.5-10.5); Carbon Dioxide 25 mmol/L (22-29); Chloride 98 mmol/L (98-107); Globulin 5.2 g/dL (1.3-4.6); Glomerular Filtration Rate 61.9 mL/min (90-130); Glucose 107 mg/dL (65-115); Osmolality Calculated 280 mOsm/kg (285-295); Sodium 135 mmol/L (136-145); Total Bilirubin 0.9 mg/dL (0.15-1.2); Total Protein 8.2 g/dL (6.6-8.7)
[2021-11-05 14:35] LABS: Anion Gap 15.6 (5-19); Potassium 3.6 mmol/L (3.5-5.1)
[2021-11-05 14:36] LABS: Aspartate Amino Transferase 75 U/L (0-32)
== END 2021-11-05 12:58 | disposition home or self-care (01) ==
LOC: ONCMED 13:01
PROVIDERS: PCP Nurse Practitioner Family; Referring Provider Internal Medicine; Visit Provider Internal Medicine
DX: M06.9 Rheumatoid arthritis, unspecified (principal); Z79.899 Other long term (current) drug therapy
CPT/HCPCS: 36415; 80053; 85025; 86140

== ENCOUNTER → 2021-11-09 10:07 | Outpatient (BNVA) | payer MEDICARE, MEDICAID, SELFPAY | PROVIDERS: PCP Nurse Practitioner Family; Visit Provider Internal Medicine | DX: M06.9 Rheumatoid arthritis, unspecified (principal); R53.83 Other fatigue; R11.0 Nausea; R74.01 Elevation of levels of liver transaminase levels | CPT/HCPCS: 99214 ==

== ENCOUNTER 2021-11-30 13:11 | Outpatient (CLI) | payer MEDICARE, MEDICAID, SELFPAY ==
[2021-11-30 13:41] LABS: Add Urine Microscopic? YES; Bilirubin Urine 1+ (Negative); Blood Urine 3+ (Negative); Glucose Urine UA Norm (Normal); Ketones Urine 1+ (Negative); Leukocyte Esterase Urine 1+ (Negative); Nitrate Urine Negative (Negative); Protein Urine Trace (Negative); Specific Gravity, Urine 1.015 (1.005-1.030); Urine Appearance Clear (CLEAR); Urine Color Yellow (Yellow); Urobilinogen Urine 1 mg/dL (Negative); pH Urine 6.5 (5-7)
[2021-11-30 13:47] LABS: Alanine Aminotransferase 18 U/L (0-33); Albumin Level 3.1 g/dL (3.5-5.2); Alkaline Phosphatase 84 IU/L (35-105); Blood Urea Nitrogen 11 mg/dL (8-23); Calcium 7.8 mg/dL (8.5-10.5); Carbon Dioxide 24 mmol/L (22-29); Chloride 94 mmol/L (98-107); Globulin 4.4 g/dL (1.3-4.6); Glomerular Filtration Rate 70.9 mL/min (90-130); Glucose 77 mg/dL (65-115); Osmolality Calculated 276 mOsm/kg (285-295); Sodium 134 mmol/L (136-145); Total Bilirubin 0.8 mg/dL (0.15-1.2); Total Protein 7.5 g/dL (6.6-8.7)
[2021-11-30 13:50] LABS: Anion Gap 19.3 (5-19); Aspartate Amino Transferase 47 U/L (0-32); Potassium 3.3 mmol/L (3.5-5.1)
[2021-11-30 14:18] LABS: Add Urine Culture? Yes; Bacteria Urine 1+ /hpf; Mucus Urine TRACE /hpf; RBC Urine 0-4 /hpf (0-2)
== END 2021-11-30 13:12 | disposition home or self-care (01) ==
PROVIDERS: PCP Nurse Practitioner Family; Visit Provider Nurse Practitioner Family
DX: Z87.440 Personal history of urinary (tract) infections (principal); E87.6 Hypokalemia
CPT/HCPCS: 80053; 81001; 87086